=== PATIENT | female | born 1955 | race Caucasian/White ===

== ENCOUNTER 2017-05-20 08:00 | Outpatient (CLI) | payer MEDICARE ==
[2017-05-20 19:15] LABS: BASOPHILS # (AUTO) 0.1 10^3/uL (0.0-0.1); BASOPHILS % (AUTO) 0.6 %; EOSINOPHILS # (AUTO) 0.2 10^3/uL (0.0-0.7); EOSINOPHILS % (AUTO) 1.4 %; HCT - HEMATOCRIT 40.5 % (37.0-47.0); HGB - HEMOGLOBIN 13.3 g/dL (12.0-16.0); MEAN CORPUSCULAR HEMOGLOBIN 30.6 pg (27.0-31.0); MEAN CORPUSCULAR HGB CONC 32.8 g/dL (32.0-36.0); MEAN CORPUSCULAR VOLUME 93.2 fL (81.0-99.0); MEAN PLATELET VOLUME 10.3 fL (7.9-10.8); MONOCYTES # (AUTO) 0.7 10^3/uL (0.0-1.0); MONOCYTES % (AUTO) 6.3 %; NEUTROPHILS # (AUTO) 7.6 10^3/uL (1.5-6.6); NEUTROPHILS % (AUTO) 65.7 %; NUCLEATED RED BLOOD CELLS AUTO 0.1 /100WBC; RED BLOOD COUNT 4.35 10^6/uL (4.20-5.40); RED CELL DISTRIBUTION WIDTH 14.4 % (12.0-15.0); UNCORRECTED WHITE BLOOD COUNT 11.6 x10^3/uL; WHITE BLOOD COUNT 11.6 x10^3/uL (4.8-10.8)
== END 2017-05-20 08:01 | disposition home or self-care (01) ==
LOC: LAB.N 08:00
PROVIDERS: ATTEND Physician Assistant
DX: G57.00 Lesion of sciatic nerve, unspecified lower limb (principal); I10 Essential (primary) hypertension
CPT/HCPCS: 36415; 80053; 80061; 84443; 85025

== ENCOUNTER 2017-05-26 08:52 | Outpatient (CLI) | payer MEDICARE ==
[2017-05-26 13:21] LABS: ALBUMIN/GLOBULIN RATIO 1.4 (1.0-2.2); BILIRUBIN,TOTAL 0.5 mg/dL (0.2-1.0); BUN - BLOOD UREA NITROGEN 14 mg/dL (6-20); CALCIUM 9.8 mg/dL (8.5-10.3); CARBON DIOXIDE - CO2 26 mmol/L (21-32); CHLORIDE 105 mmol/L (101-111); CHOL/HDL RATIO 2.6 (<4.4); CHOLESTEROL 184 mg/dL; CREATININE 0.7 mg/dL (0.4-1.0); GFR - MDRD 85 (>89); GLUCOSE 99 mg/dL (70-100); HDL CHOLESTEROL 72 mg/dL; LDL/HDL RATIO 0.8 (<4.4); POTASSIUM 3.8 mmol/L (3.5-5.0); SODIUM 140 mmol/L (135-145); TOTAL PROTEIN 7.6 g/dL (6.7-8.2); TRIGLYCERIDES 258 mg/dL; VLDL CHOLESTEROL 52 mg/dL
== END 2017-05-26 08:53 | disposition home or self-care (01) ==
LOC: LAB.N 08:52
PROVIDERS: ATTEND Nurse Practitioner Gerontology
DX: G57.00 Lesion of sciatic nerve, unspecified lower limb (principal); I10 Essential (primary) hypertension
CPT/HCPCS: 80053; 80061; 84443

== ENCOUNTER 2018-05-18 10:26 | Outpatient (CLI) | payer MEDICARE ==
[2018-05-18 12:27] LABS: BASOPHILS # (AUTO) 0.1 10^3/uL (0.0-0.1); BASOPHILS % (AUTO) 0.7 %; EOSINOPHILS % (AUTO) 0.4 %; HGB - HEMOGLOBIN 15.6 g/dL (12.0-16.0); LYMPHOCYTES # (AUTO) 1.7 10^3/uL (1.5-3.5); LYMPHOCYTES % (AUTO) 16.6 %; MEAN CORPUSCULAR HEMOGLOBIN 34.4 pg (27.0-31.0); MEAN CORPUSCULAR HGB CONC 34.9 g/dL (32.0-36.0); MEAN CORPUSCULAR VOLUME 98.7 fL (81.0-99.0); MEAN PLATELET VOLUME 10.3 fL (7.9-10.8); MONOCYTES # (AUTO) 0.7 10^3/uL (0.0-1.0); MONOCYTES % (AUTO) 6.7 %; NEUTROPHILS # (AUTO) 7.7 10^3/uL (1.5-6.6); NEUTROPHILS % (AUTO) 75.6 %; PLT - PLATELET COUNT 234 10^3/uL (130-450); RED BLOOD COUNT 4.54 10^6/uL (4.20-5.40); RED CELL DISTRIBUTION WIDTH 13.6 % (12.0-15.0); WHITE BLOOD COUNT 10.2 x10^3/uL (4.8-10.8)
[2018-05-18 13:25] LABS: ALBUMIN 4.5 g/dL (3.2-5.5); ALBUMIN/GLOBULIN RATIO 1.4 (1.0-2.2); ALKALINE PHOSPHATASE 62 IU/L (42-121); ALT ALANINE AMINOTRANSFERASE 52 IU/L (10-60); AST ASPARTATE AMINOTRANSFERASE 85 IU/L (10-42); BILIRUBIN,TOTAL 1.1 mg/dL (0.2-1.0); BUN - BLOOD UREA NITROGEN 20 mg/dL (6-20); CALCIUM 9.8 mg/dL (8.5-10.3); CARBON DIOXIDE - CO2 25 mmol/L (21-32); CHLORIDE 98 mmol/L (101-111); CHOL/HDL RATIO 1.9 (<4.4); CHOLESTEROL 188 mg/dL; CREATININE 0.7 mg/dL (0.4-1.0); GFR - MDRD 85 (>89); GLUCOSE 93 mg/dL (70-100); HDL CHOLESTEROL 101 mg/dL; LDL CHOLESTEROL,CALCULATED 74 mg/dL; LDL/HDL RATIO 0.7 (<4.4); SODIUM 138 mmol/L (135-145); TOTAL PROTEIN 7.8 g/dL (6.7-8.2); VLDL CHOLESTEROL 13 mg/dL
== END 2018-05-18 10:27 | disposition home or self-care (01) ==
LOC: LAB.N 10:26
PROVIDERS: ATTEND Nurse Practitioner Gerontology
DX: E78.1 Pure hyperglyceridemia (principal); N18.2 Chronic kidney disease, stage 2 (mild); E66.9 Obesity, unspecified; F10.10 Alcohol abuse, uncomplicated; I12.9 Hypertensive chronic kidney disease with stage 1 through stage 4 chronic kidney disease, or unspecified chronic kidney disease
CPT/HCPCS: 36415; 80053; 80061; 83721; 85025

== ENCOUNTER 2018-07-25 16:09 | Outpatient (CLI) | payer MEDICARE | END 2018-07-25 16:10 | disposition critical access hospital (66) | LOC: EMS 16:09 | PROVIDERS: ATTEND Surgery | DX: R53.1 Weakness (principal); M25.561 Pain in right knee; R35.0 Frequency of micturition; Z91.81 History of falling | CPT/HCPCS: A0425; A0427 ==

== ENCOUNTER 2018-07-25 16:37 | Inpatient (IN) | payer MEDICARE, MEDICAID ==
[2018-07-25] MEDS ORDERED: SODIUM CHLORIDE 0.9% 1,000 ML IV ONE ×2 (16:53→17:40)
--- NOTE | 2018-07-25 16:56 | ED Physician Documentation ---
History of Present Illness - Stated complaint Stated Complaint: GLF - Chief complaint Chief Complaint: General - History obtained from History obtained from: Patient, EMS - History of Present Illness Timing: Other (This is a 63-year-old woman with history of peripheral neuropathy, she is not sure why, she is not diabetic. He gives her chronic mobility issues but over the last few days has been basically bedbound after a fall where she hit her right knee because she is generally weak. Paramedics were summoned by her family, she was found to be hypoglycemic at 50 and given oral glucose and also orthostatic with significant blood pressure drops on standing. She says that she has been incontinent of urine and feces over the last few days and has "stolen" her son's diapers, he has spina bifida.) Review of Systems Ten Systems: 10 systems reviewed and negative Constitutional: reports: Fatigue. 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, Hysterectomy - Present Medications Home Medications: Ambulatory Orders Medication Instructions Recorded Confirmed Amlodipine Besylate 5 mg PO DAILY 07/25/18 07/25/18 Gabapentin 300 mg PO DAILY PM 07/25/18 07/25/18 Lisinopril 20 mg PO DAILY 07/25/18 07/25/18 Pravastatin [Pravachol] 40 mg PO DAILY 07/25/18 07/25/18 - Allergies Allergies/Adverse Reactions: Allergies Allergy/AdvReac Type Severity Reaction Status Date / Time No Known Drug Allergies Allergy Verified 07/25/18 16:43 - Social History Does the pt smoke?: No Smoking Status: Former smoker Does the pt drink ETOH?: Yes Does the pt have substance abuse?: No - Family History Family history: reports: Non contributory - Immunizations Immunizations are current?: Yes PD ED PE NORMAL - Vitals Vital signs reviewed: Yes - General General: Alert and oriented X 3, Other (Somewhat unkempt woman who appears stated age and is in no distress) - HEENT HEENT: PERRL, EOMI - Neck Neck: Supple, no meningeal sign, No bony TTP - Cardiac Cardiac: RRR, No murmur - Respiratory Respiratory: No respiratory distress, Clear bilaterally - Abdomen Abdomen: Normal bowel sounds, Soft, Non tender - Back Back: No CVA TTP, No spinal TTP - Derm Derm: Normal color, Warm and dry - Extremities Extremities: Other (There is a large bruise over the anteromedial right knee but without overt tenderness or limited range of motion) - Neuro Neuro: Alert and oriented X 3, Normal speech, Other (She is at least a 1 person assist to even sit up in bed.) Eye Opening: Spontaneous Motor: Obeys Commands Verbal: Oriented GCS Score: 15 Results - Vitals Vitals: Vital Signs - 24 hr 07/25/18 16:37 Temperature 36.5 C Heart Rate 95 Respiratory 16 Rate Blood Pressure 96/71 O2 Saturation 99 Oxygen O2 Source Room air - EKG (time done) 1642 Rate: Rate (enter#) (90) Rhythm: NSR [place]: LAD Intervals: Normal NH QRS: Normal Ischemia: Non specific changes Compare to prior EKG: Old EKG unavailable Computer interpretation: Agree with computer - Labs Labs: Laboratory Tests 07/25/18 07/25/18 07/25/18 17:05 17:05 17:05 WBC 9.9 RBC 3.98 L Hgb 13.3 Hct 39.6 MCV 99.5 H MCH 33.4 H MCHC 33.5 RDW 15.0 Plt Count 196 MPV 8.8 Neut # (Auto) 7.6 H Lymph # (Auto) 1.4 L Clare # (Auto) 0.8 Eos # (Auto) 0.0 Baso # (Auto) 0.1 Absolute Nucleated RBC 0.01 Nucleated RBC % 0.1 Sodium 139 Potassium 4.5 Chloride 100 L Carbon Dioxide 15 L Anion Gap 24.0 H BUN 36 H Creatinine 1.0 Estimated GFR (MDRD) 56 L Glucose 69 L Calcium 9.0 Phosphorus 3.1 Magnesium 1.9 Total Bilirubin 1.7 H AST 171 H ALT 106 H Alkaline Phosphatase 63 Total Creatine Kinase 2692 H* CK-MB (CK-2) 69.2 H Troponin I < 0.04 Total Protein 7.3 Albumin 3.9 Globulin 3.4 Albumin/Globulin Ratio 1.1 Lipase 62 H Urine Color Urine Clarity Urine pH Ur Specific [place] Urine Protein Urine Glucose (UA) Urine Ketones Urine Occult Blood Urine Nitrite Urine Bilirubin Urine Urobilinogen Ur Leukocyte Esterase Urine RBC Urine WBC Ur Squamous Epith Cells Urine Bacteria Ur Microscopic Review Urine Culture Comments Ethyl Alcohol 157.4 07/25/18 17:15 WBC RBC Hgb Hct MCV MCH MCHC RDW Plt Count MPV Neut # (Auto) Lymph # (Auto) Clare # (Auto) Eos # (Auto) Baso # (Auto) Absolute Nucleated RBC Nucleated RBC % Sodium Potassium Chloride Carbon Dioxide Anion Gap BUN Creatinine Estimated GFR (MDRD) Glucose Calcium Phosphorus Magnesium Total Bilirubin AST ALT Alkaline Phosphatase Total Creatine Kinase CK-MB (CK-2) Troponin I Total Protein Albumin Globulin Albumin/Globulin Ratio Lipase Urine Color YELLOW Urine Clarity CLEAR Urine pH 6.0 Ur Specific [place] >=1.030 H Urine Protein TRACE Urine Glucose (UA) NEGATIVE Urine Ketones >=80 H Urine Occult Blood LARGE H Urine Nitrite NEGATIVE Urine Bilirubin NEGATIVE Urine Urobilinogen 0.2 (NORMAL) Ur Leukocyte Esterase NEGATIVE Urine RBC 0-5 Urine WBC 0-3 Ur Squamous Epith Cells MOD Squamous H Urine Bacteria None Seen Ur Microscopic Review INDICATED Urine Culture Comments NOT INDICATED Ethyl Alcohol PD MEDICAL DECISION MAKING - ED course ED course: 63-year-old woman presents by ambulance because she has been bedbound after a fall 3 days ago. She is very weak and has evidence of dehydration marked by prehospital orthostatic hypotension and also prehospital hypoglycemia. She is found to be intoxicated with a blood alcohol of 157 with modest alcoholic hepatitis, dehydration with a high BUN and rhabdomyolysis. She was given a liter of IV fluids and then placed on twice maintenance. She will be placed in the hospital and I spoke with Dr. Connors for admission at 5:43 PM. Departure - Departure Disposition: 66 [facility] DC/Xfer Clinical Impression: Dehydration Rhabdomyolysis Qualifiers: Rhabdomyolysis type: non-traumatic Qualified Code(s): M62.82 - Rhabdomyolysis Alcohol intoxication Qualifiers: Complication of substance-induced condition: uncomplicated Qualified Code(s): F10.920 - Alcohol use, unspecified with intoxication, uncomplicated Alcoholic hepatitis Qualifiers: Ascites presence: without ascites Qualified Code(s): K70.10 - Alcoholic hepatitis without ascites Condition: Serious
[2018-07-25 17:10] LABS: BASOPHILS # (AUTO) 0.1 10^3/uL (0.0-0.1); BASOPHILS % (AUTO) 1.3 %; HGB - HEMOGLOBIN 13.3 g/dL (12.0-16.0); LYMPHOCYTES # (AUTO) 1.4 10^3/uL (1.5-3.5); LYMPHOCYTES % (AUTO) 13.8 %; MEAN CORPUSCULAR HEMOGLOBIN 33.4 pg (27.0-31.0); MEAN CORPUSCULAR HGB CONC 33.5 g/dL (32.0-36.0); MEAN CORPUSCULAR VOLUME 99.5 fL (81.0-99.0); MEAN PLATELET VOLUME 8.8 fL (7.9-10.8); MONOCYTES # (AUTO) 0.8 10^3/uL (0.0-1.0); NEUTROPHILS # (AUTO) 7.6 10^3/uL (1.5-6.6); NEUTROPHILS % (AUTO) 76.9 %; PLT - PLATELET COUNT 196 10^3/uL (130-450); RED BLOOD COUNT 3.98 10^6/uL (4.20-5.40); WHITE BLOOD COUNT 9.9 x10^3/uL (4.8-10.8)
[2018-07-25 17:22] LABS: BILIRUBIN,URINE NEGATIVE (NEGATIVE); GLUCOSE, URINE (UA) NEGATIVE (NEGATIVE); KETONES,URINE (UA) >=80 mg/dL (NEGATIVE); LEUKOCYTE ESTERASE, URINE NEGATIVE (NEGATIVE); NITRITE,URINE NEGATIVE (NEGATIVE); OCCULT BLOOD,URINE LARGE (NEGATIVE); PROTEIN,URINE TRACE mg/dL (NEGATIVE); UROBILINOGEN,URINE 0.2 (NORMAL) E.U./dL (NORMAL)
[2018-07-25 17:28] LABS: TROPONIN I < 0.04 ng/mL (<0.49)
[2018-07-25 17:30] LABS: CLARITY,URINE CLEAR (CLEAR)
[2018-07-25 17:30] LABS: CREATINE KINASE MB 69.2 ng/mL (0.6-6.3)
[2018-07-25 17:31] LABS: BACTERIA,URINE None Seen /HPF (None Seen); RBC,URINE 0-5 /HPF (0-5); SQUAMOUS EPITHELIAL CELL,UR MOD Squamous (<= Few)
[2018-07-25 17:32] LABS: ALBUMIN 3.9 g/dL (3.2-5.5); ALBUMIN/GLOBULIN RATIO 1.1 (1.0-2.2); BILIRUBIN,TOTAL 1.7 mg/dL (0.2-1.0); MAGNESIUM 1.9 mg/dL (1.7-2.8); PHOSPHORUS 3.1 mg/dL (2.5-4.6); TOTAL PROTEIN 7.3 g/dL (6.7-8.2)
[2018-07-25] MEDS ORDERED: LORazepam 2 MG/ML VIAL IVP STA (17:47)
[2018-07-25] MEDS ORDERED: THIAMINE INJ 100 MG in SODIUM CHLORIDE 0.9% 50 ML IV STA (17:47)
--- NOTE | 2018-07-25 18:02 | XRAY Report ---
Reason: knee inj Procedure Date: 07/25/2018 Accession Number: [id number] / [id number] Procedure: XR - Knee 4 View RT CPT Code: FULL RESULT: EXAM: RIGHT KNEE RADIOGRAPHY EXAM DATE: 07/25/2018 05:43 PM. CLINICAL HISTORY: Pain. COMPARISON: None. TECHNIQUE: 4 views. FINDINGS: Bones: Normal. No fractures or bone lesions. Joints: Normal. No effusion. No subluxations. Soft Tissues: Normal. No soft tissue swelling. IMPRESSION: Normal knee radiography. RADIA
--- NOTE | 2018-07-25 18:05 | XRAY Report ---
Reason: failure to thrive Procedure Date: 07/25/2018 Accession Number: [id number] / [id number] Procedure: XR - Chest 2 View X-Ray CPT Code: 48424 FULL RESULT: EXAM: CHEST RADIOGRAPHY EXAM DATE: 07/25/2018 05:43 PM. CLINICAL HISTORY: Failure to thrive. COMPARISON: 06/07/2012 12:45 PM. TECHNIQUE: 2 views. FINDINGS: Lungs/Pleura: No focal opacities evident. No pleural effusion. No pneumothorax. Normal volumes. Mediastinum: Stable cardiomediastinal silhouette. Ectatic thoracic aorta. Other: None. IMPRESSION: 1. No acute pulmonary process. RADIA
[2018-07-25] MEDS ORDERED: ONDANSETRON 4 MG/2 ML VIAL IVP PRN (18:31)
--- NOTE | 2018-07-25 18:45 | HISTORY & PHYSICAL EXAMINATION ---
Chief Complaint - Chief Complaint Chief Complaint: confused, and alcohol abuse History of Present Illness - History of Present Illness HPI Comment/Other: Ms. Hernandez is a 63-year-old woman with history of peripheral neuropathy, HTN, HLD, chronic back pain, and alcohol abuse, who present ER for confusion, weakness. She was found to have alcohol level 157 in ER. Pt could not provide information because of her confusion. Her daughter report since she had a previous fall, she had chronic mobility issues and has been basically bed. When Paramedics reached to her, her blood glucose was at 50. She was given oral glucose, then her glucose level went to up 89. She was reported that she has been incontinent of urine and feces over the last few days and has "stolen" her son's diapers. Her son had spina bifida, and lived with her. Her liver enzyme wa s elevated and she had elevated CK at 2700. She had anion gap at 24, BUN 36, creatinine 1.0. 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 denies: Fever, Chills, Diaphoresis - Eyes Eyes: denies: Pain, Irritation, Amaurosis, Spots in vision, Field loss, Vision loss, Dipolpia - Ears, Nose & Throat Ears, Nose & Throat: denies: Ear pain, Hearing loss, Hearing aids, Tinnitus, Vertigo, Nasal pain, Nasal discharge, Nosebleeds, Nasal obstruction, Nasal congestion, Postnasal drainage, Dentures, Sore throat, Mouth lesions - Cardiovascular Cariovascular: denies: Irregular heart rate, Palpitations, Chest pain, Edema, Lightheadedness, Syncope, Exertional dyspnea, Decr. exercise tolerance - Respiratory Respiratory: denies: Cough, Sputum production, Wheezing, Snoring, Hemoptysis, SOB at rest, SOB with exertion - Gastrointestinal Gastrointestinal: denies: Abdominal pain, Abdominal distention, Constipation, Diarrhea, Change in bowel habits, Rectal bleeding, Black stools, Bloody stools, Nausea, Vomiting, Bile emesis, Jose Eduardo blood emesis, Coffee grounds emesis, Reflux/heartburn - Genitourinary Genitourinary: denies: Dysuria, Frequency, Urgency, Hematuria, Incontinence, Flank pain, Nocturia, Urethral discharge - Musculoskeletal Musculoskeletal: denies: Muscle pain, Back pain, Muscle aches, Stiffness, Limited range of motion, Muscle weakness, Gout, Joint pain - Integumentary Integumentary: denies: Rash, Pruritis, Lesions, Dryness, Lumps, Acne, Pigment changes, Nail changes - Neurological Neurological: reports: General weakness. denies: Focal weakness, Headache, Dizziness, Numbness, Memory problems, Pre-existing deficit, Abnormal gait, Seizures, Incoordination - Psychiatric Psychiatric: denies: Depression, Anxiety, Suicidal, Delusions, Hallucinations, Homicidal - Endocrine Endocrine: denies: Polyuria, Polydypsia, Polyphagia, Intolerance to cold - Hematologic/Lymphatic Hematologic/Lymphatic: denies: Anemia, Bruising, Petechiae, Blood clots, Lymphadenopathy, Bleeding tendencies Prior Level of Functionality: bed-bound, is living with her son Exam - Vital Signs Reviewed Vital Signs: Yes Vital Signs: Vital Signs x48h Temp Pulse Resp BP Pulse Ox 07/25/18 16:37 36.5 C 95 16 96/71 99 - Physical Exam General Appearance: positive: No acute distress, Alert. negative: Lethargic Eyes Bilateral: positive: Normal inspection, PERRL, No lid inflammation, Conjunctivae nml ENT: positive: ENT inspection nml, Pharynx nml, No signs of dehydration. negative: Purulent nasal drainage, Pharyngeal erythema, Oral lesions Neck: positive: Nml inspection, Thyroid nml, No JVD, Trachea midline. negative: Thyromegaly, Lymphadenopathy (R), Lymphadenopathy (L), Stiff neck, Sw elling/bruising, Tracheal deviation Respiratory: positive: Chest non-tender, No respiratory distress, Breath sounds nml. negative: Wheezes, Rales, Rhonchi Cardiovascular: positive: Regular rate & rhythm, No murmur, No gallop. negative: Irregularly irregular, Extrasystoles, Tachycardia, Bradycardia, JVD present, Systolic murmur, Diastolic murmur Peripheral Pulses: positive: 2+ Abdomen: positive: Non-tender, No organomegaly, Nml bowel sounds. negative: No distention, Tenderness, Guarding, Rebound Back: positive: Nml inspection. negative: CVA tenderness (R), CVA tenderness (L) Skin: positive: Color nml, No rash, Warm, Dry. negative: Cyanosis, Diaphoresis, Pallor Extremities: positive: Non-tender, Full ROM, Nml appearance. negative: Calf tenderness, Joint swelling, Miguel's sign/cords Neurologic/Psychiatric: positive: Sensation nml, Mood/affect nml, Disoriented to place, Disoriented to time. negative: Weakness, Sensory loss, Facial droop, Slurred/abnml speech, Depressed mood/affect Conclusion/Plan - Problem List (1) Rhabdomyolysis Conclusion/Plan: elevated CK to 2700 IVF 150 NS check CK daily Monitor renal function. Qualifiers: Rhabdomyolysis type: non-traumatic Qualified Code(s): M62.82 - Rhabdomyolysis (2) Alcohol intoxication Conclusion/Plan: ETOH level 157, hx of alcoholic abuse CAWA protocol neuro check lab and vital monitor Qualifiers: Complication of substance-induced condition: uncomplicated Qualified Code(s): F10.920 - Alcohol use, unspecified with intoxication, uncomplicated (3) Alcoholic hepatitis Conclusion/Plan: elevated liver enzyme, alcoholic hepatitis advise pt quit alcohol daily lab monitor hold hepatic toxical agents Qualifiers: Ascites presence: without ascites Qualified Code(s): K70.10 - Alcoholic hepatitis without ascites (4) Dehydration Conclusion/Plan: IVF of NS daily lab monitor (5) Hypoglycemia Conclusion/Plan: hypoglycemia, caused by alcohol abuse and reduced oral glucose intake ACHS, closely monitor regular diet - Lab Results Fish Bones: 07/26/18 06:23 07/26/18 06:23 Core Measures - Anticipated LOS I expect patient to be DC'd or transferred within 96 hours.: Yes - DVT/VTE - Prophylaxis VTE/DVT Device ordered at admit?: Yes VTE/DVT Prophylaxis med ordered at admit?: Yes
[2018-07-25 19:14] LABS: MUDS CUTOFF CONCENTRATIONS CUTOFF CONC BELOW:
[2018-07-25 19:27] LABS: AMPHETAMINE SCREEN,URINE NEGATIVE (NEGATIVE); BENZODIAZEPINES SCREEN, URINE NEGATIVE (NEGATIVE); COCAINE SCREEN URINE NEGATIVE (NEGATIVE); METHADONE SCREEN, URINE NEGATIVE (NEGATIVE); METHAMPHETAMINES SCREEN, URINE NEGATIVE (NEGATIVE); OPIATE SCREEN, URINE NEGATIVE (NEGATIVE); OXYCODONE SCREEN, URINE NEGATIVE (NEGATIVE); PROPOXYPHENE SCREEN, URINE NEGATIVE (NEGATIVE); TRICYCLIC ANTIDEPRESSANT,URINE NEGATIVE (NEGATIVE)
[2018-07-25] MEDS ORDERED: A & D OINTMENT 5 GM PACKET TOP PRN (20:21)
[2018-07-25] MEDS ORDERED: ZINC OXIDE 20% OINT 28.35 GM TUBE TOP PRN (20:21)
[2018-07-25] MEDS: FAMOTIDINE 20 MG TABLET PO SCH (20:40)
[2018-07-25] MEDS: SODIUM CHLORIDE 0.9% 1,000 ML IV SCH (20:41)
[2018-07-26] MEDS: SODIUM CHLORIDE 0.9% 1,000 ML IV SCH ×4 (00:06→16:45)
[2018-07-26] MEDS: HYDROCORTISONE 1% CREAM 28 GM TUBE TOP SCH ×3 (01:50→20:31)
[2018-07-26] MEDS: SODIUM CHLORIDE FLUSH 0.9% 10 ML SYRINGE IVP SCH ×3 (05:01→15:40)
[2018-07-26 07:01] LABS: BASOPHILS # (AUTO) 0.1 10^3/uL (0.0-0.1); BASOPHILS % (AUTO) 0.6 %; EOSINOPHILS % (AUTO) 0.2 %; HGB - HEMOGLOBIN 11.1 g/dL (12.0-16.0); LYMPHOCYTES # (AUTO) 1.9 10^3/uL (1.5-3.5); LYMPHOCYTES % (AUTO) 19.7 %; MEAN CORPUSCULAR HEMOGLOBIN 33.7 pg (27.0-31.0); MEAN CORPUSCULAR HGB CONC 34.1 g/dL (32.0-36.0); MEAN PLATELET VOLUME 9.1 fL (7.9-10.8); MONOCYTES # (AUTO) 0.8 10^3/uL (0.0-1.0); MONOCYTES % (AUTO) 8.7 %; NEUTROPHILS # (AUTO) 6.8 10^3/uL (1.5-6.6); NEUTROPHILS % (AUTO) 70.8 %; PLT - PLATELET COUNT 157 10^3/uL (130-450); RED CELL DISTRIBUTION WIDTH 14.8 % (12.0-15.0); WHITE BLOOD COUNT 9.6 x10^3/uL (4.8-10.8)
[2018-07-26 07:18] LABS: ALBUMIN 3.1 g/dL (3.2-5.5); ALBUMIN/GLOBULIN RATIO 1.2 (1.0-2.2); BILIRUBIN,TOTAL 2.1 mg/dL (0.2-1.0); CALCIUM 8.5 mg/dL (8.5-10.3); CREATININE 0.7 mg/dL (0.4-1.0); MAGNESIUM 1.7 mg/dL (1.7-2.8); PHOSPHORUS 1.8 mg/dL (2.5-4.6); TOTAL PROTEIN 5.7 g/dL (6.7-8.2)
[2018-07-26 07:23] LABS: PT - PROTHROMBIN TIME 11.3 secs (9.9-12.6)
[2018-07-26] MEDS ORDERED: MULTIVITAMIN 10 ML, THIAMINE INJ 100 MG, FOLIC ACID INJ 1 MG in SODIUM CHLORIDE 0.9% 1,... IV SCH (09:00)
[2018-07-26] MEDS: FAMOTIDINE 20 MG TABLET PO SCH ×2 (09:30→20:31)
[2018-07-26] MEDS: ACETAMINOPHEN 325 MG TABLET PO PRN ×2 (09:30→16:44)
[2018-07-26] MEDS: ENOXAPARIN 40 MG/0.4 ML SYRINGE SUBQ SCH (09:31)
[2018-07-26] MEDS: DOCUSATE SODIUM 250 MG CAPSULE PO SCH (09:31)
[2018-07-26] MEDS: SENNA 8.6 MG TABLET PO SCH (09:31)
[2018-07-26] MEDS: POLYETHYLENE GLYCOL 3350 17 GM PACKET PO SCH (09:33)
[2018-07-26] MEDS: LORazepam 2 MG/ML VIAL IVP PRN ×3 (10:33→22:52)
--- NOTE | 2018-07-26 16:32 | PROVIDER PROGRESS NOTE ---
Subjective - Prog Note Date Prog Note Date: 07/26/18 - Subjective Pt reports feeling: Improved Subjective: pt report she feel some better today. She report she usually drunk 750ml alcohol daily. she denies CP, fever, chill, SOB Current Medications - Current Medications Current Medications: Active Medications Acetaminophen (Tylenol) 650 mg PO Q4HR PRN PRN Reason: Pain 1 to 4 Last Admin: 07/26/18 09:30 Dose: 650 mg Docusate Sodium (Colace 250mg Capsule) 250 - 500 mg PO DAILY [facility] Last Admin: 07/26/18 09:31 Dose: 500 mg Enoxaparin Sodium (Lovenox) 40 mg SUBQ DAILY [facility] Last Admin: 07/26/18 09:31 Dose: 40 mg Famotidine (Pepcid) 20 mg PO BID [facility] Last Admin: 07/26/18 09:30 Dose: 20 mg Hydrocortisone (Hydrocortisone) 1 applic TOP BID [facility] Last Admin: 07/26/18 09:34 Dose: 1 applic Multivitamins 10 ml/ Thiamine HCl 100 mg/ Folic Acid 1 mg/Sodium Chloride 1,011.2 mls @ 100 mls/hr IV DAILY [facility] Last Admin: 07/26/18 09:39 Dose: 100 mls/hr Sodium Chloride (Normal Saline 0.9%) 1,000 mls @ 125 mls/hr IV .Q8H [facility] Lorazepam (Ativan Inj (Vial)) 1 mg IVP Q30M PRN; Protocol PRN Reason: CIWA >8 Last Admin: 07/26/18 10:33 Dose: 1 mg Multi-Ingredient Ointment (Zinc Oxide) 1 applic TOP PRN PRN PRN Reason: Skin Care Last Admin: 07/25/18 20:40 Dose: 1 applic Ondansetron HCl (Zofran Inj) 4 mg IVP Q6HR PRN PRN Reason: Nausea / Vomiting Polyethylene Glycol (Miralax) 17 gm PO DAILY [facility] Last Admin: 07/26/18 09:33 Dose: 17 gm Senna (Senokot) 8.6 - 17.2 mg PO DAILY [facility] Last Admin: 07/26/18 09:31 Dose: Not Given Sodium Chloride (Normal Saline Flush 0.9%) 10 ml IVP PRN PRN PRN Reason: NEEDED PER PROVIDER ORDERS Sodium Chloride (Normal Saline Flush 0.9%) 10 ml IVP 0100,0900,1700 [facility] Last Admin: 07/26/18 15:40 Dose: Not Given Vitamin A/Vitamin D (Vitamin A & D Ointment) 1 applic TOP PRN PRN PRN Reason: Skin Care Last Admin: 07/25/18 20:40 Dose: 1 applic Amlodipine Besylate 5 mg PO DAILY 07/25/18 Lisinopril 20 mg PO DAILY 07/25/18 Pravastatin [Pravachol] 40 mg PO DAILY 07/25/18 Objective - Vital Signs/Intake & Output Reviewed Vital Signs: Yes Vital Signs: Vital Signs x48h Temp Pulse Pulse Resp BP Pulse Ox 07/26/18 15:39 37.1 C 103 H 18 121/82 H 96 07/26/18 12:36 36.9 C 90 16 121/80 94 07/26/18 11:23 36.8 C 90 14 96 07/26/18 10:00 36.8 C 86 16 115/73 95 07/26/18 08:37 36.8 C 94 14 130/80 96 Intake & Output: Intake & Output 07/23/18 07/24/18 07/25/18 07/26/18 23:59 23:59 23:59 23:59 Intake Total 1605 2555.0 Output Total 200 251 Balance 1405 2304.0 - Objective General Appearance: positive: No acute distress, Alert. negative: Lethargic Eyes Bilateral: positive: Normal inspection, PERRL, No lid inflammation, Conjunctivae nml ENT: positive: ENT inspection nml, Pharynx nml, No signs of dehydration. negative: Purulent nasal drainage, Pharyngeal erythema, Oral lesions Neck: positive: Nml inspection, Thyroid nml, No JVD, Trachea midline. negative: Thyromegaly, Lymphadenopathy (R), Lymphadenopathy (L), Stiff neck, Swelling/bruising, Tracheal deviation Respiratory: positive: Chest non-tender, No respiratory distress, Breath sounds nml. negative: Wheezes, Rales, Rhonchi Cardiovascular: positive: Regular rate & rhythm, No murmur, No gallop. negative: Irregularly irregular, Extrasystoles, Tachycardia, Bradycardia, JVD present, Systolic murmur, Diastolic murmur Peripheral Pulses: 2+ Radial (R), 2+ Radial (L), 2+ Dorsalis pedis (R), 2+ Dorsalis pedis (L) Abdomen: positive: Non-tender, No organomegaly, Nml bowel sounds, No distention. negative: Tenderness, Guarding, Rebound Back: positive: Nml inspection. negative: CVA tenderness (R), CVA tenderness (L) Skin: positive: Color nml, No rash, Warm, Dry. negative: Cyanosis, Diaphoresis, Pallor Extremities: positive: Non-tender, Full ROM, Nml appearance. negative: Calf tenderness, Joint swelling, Miguel's sign/cords Neurologic/Psychiatric: positive: CN's nml (2-12), Motor nml, Sensation nml. negative: Mood/affect nml, Weakness, Sensory loss, Facial droop, Slurred/abnml speech, Depressed mood/affect - Lab Results Fish Bones: 07/26/18 06:23 07/26/18 06:23 Other Labs: Lab Results x24hrs 07/26/18 07/26/18 07/26/18 Range/Units 09:02 06:23 06:23 WBC (4.8-10.8) x10^3/uL RBC (4.20-5.40) 10^6/uL Hgb (12.0-16.0) g/dL Hct (37.0-47.0) % MCV (81.0-99.0) fL MCH (27.0-31.0) pg MCHC (32.0-36.0) g/dL RDW (12.0-15.0) % Plt Count (130-450) 10^3/uL MPV (7.9-10.8) fL Neut # (Auto) (1.5-6.6) 10^3/uL Lymph # (Auto) (1.5-3.5) 10^3/uL [place] # (Auto) (0.0-1.0) 10^3/uL Eos # (Auto) (0.0-0.7) 10^3/uL Baso # (Auto) (0.0-0.1) 10^3/uL Absolute Nucleated RBC x10^3/uL Nucleated RBC % /100WBC PT 11.3 (9.9-12.6) secs INR 1.0 (0.8-1.2) Sodium 135 (135-145) mmol/L Potassium 4.2 (3.5-5.0) mmol/L Chloride 104 (101-111) mmol/L Carbon Dioxide 19 L (21-32) mmol/L Anion Gap 12.0 (6-13) BUN 27 H (6-20) mg/dL Creatinine 0.7 (0.4-1.0) mg/dL Estimated GFR (MDRD) 85 L (>89) Glucose 82 (70-100) mg/dL Calcium 8.5 (8.5-10.3) mg/dL Phosphorus 1.8 L (2.5-4.6) mg/dL Magnesium 1.7 (1.7-2.8) mg/dL Total Bilirubin 2.1 H (0.2-1.0) mg/dL AST 124 H (10-42) IU/L ALT 78 H (10-60) IU/L Alkaline Phosphatase 49 (42-121) IU/L Total Creatine Kinase 1932 H* (22-269) IU/L CK-MB (CK-2) (0.6-6.3) ng/mL Troponin I (<0.49) ng/mL Total Protein 5.7 L (6.7-8.2) g/dL Albumin 3.1 L (3.2-5.5) g/dL Globulin 2.6 (2.1-4.2) g/dL Albumin/Globulin Ratio 1.2 (1.0-2.2) Lipase (22-51) U/L Urine Color Urine Clarity (CLEAR) Urine pH (5.0-7.5) PH Ur Specific [place] (1.002-1.030) Urine Protein (NEGATIVE) mg/dL Urine Glucose (UA) (NEGATIVE) mg/dL Urine Ketones (NEGATIVE) mg/dL Urine Occult Blood (NEGATIVE) Urine Nitrite (NEGATIVE) Urine Bilirubin (NEGATIVE) Urine Urobilinogen (NORMAL) E.U./dL Ur Leukocyte Esterase (NEGATIVE) Urine RBC (0-5) /HPF Urine WBC (0-5) /HPF Ur Squamous Epith Cells (<= Few) Urine Bacteria (None Seen) /HPF Ur Microscopic Review Urine Culture Comments Urine Opiates Screen (NEGATIVE) Ur Oxycodone Screen (NEGATIVE) Urine Methadone Screen (NEGATIVE) Ur Propoxyphene Screen (NEGATIVE) Ur Barbiturates Screen (NEGATIVE) Ur Tricyclics Screen (NEGATIVE) Ur Phencyclidine Scrn (NEGATIVE) Ur Amphetamine Screen (NEGATIVE) U Methamphetamines Scrn (NEGATIVE) U Benzodiazepines Scrn (NEGATIVE) Urine Cocaine Screen (NEGATIVE) U Cannabinoids Screen (NEGATIVE) Ethyl Alcohol mg/dL 07/26/18 07/25/18 07/25/18 Range/Units 06:23 18:16 17:15 WBC 9.6 (4.8-10.8) x10^3/uL RBC 3.30 L (4.20-5.40) 10^6/uL Hgb 11.1 L (12.0-16.0) g/dL Hct 32.7 L (37.0-47.0) % MCV 99.0 (81.0-99.0) fL MCH 33.7 H (27.0-31.0) pg MCHC 34.1 (32.0-36.0) g/dL RDW 14.8 (12.0-15.0) % Plt Count 157 (130-450) 10^3/uL MPV 9.1 (7.9-10.8) fL Neut # (Auto) 6.8 H (1.5-6.6) 10^3/uL Lymph # (Auto) 1.9 (1.5-3.5) 10^3/uL [place] # (Auto) 0.8 (0.0-1.0) 10^3/uL Eos # (Auto) 0.0 (0.0-0.7) 10^3/uL Baso # (Auto) 0.1 (0.0-0.1) 10^3/uL Absolute Nucleated RBC 0.01 x10^3/uL Nucleated RBC % 0.1 /100WBC PT (9.9-12.6) secs INR (0.8-1.2) Sodium (135-145) mmol/L Potassium (3.5-5.0) mmol/L Chloride (101-111) mmol/L Carbon Dioxide (21-32) mmol/L Anion Gap (6-13) BUN (6-20) mg/dL Creatinine (0.4-1.0) mg/dL Estimated GFR (MDRD) (>89) Glucose (70-100) mg/dL Calcium (8.5-10.3) mg/dL Phosphorus (2.5-4.6) mg/dL Magnesium (1.7-2.8) mg/dL Total Bilirubin (0.2-1.0) mg/dL AST (10-42) IU/L ALT (10-60) IU/L Alkaline Phosphatase (42-121) IU/L Total Creatine Kinase (22-269) IU/L CK-MB (CK-2) (0.6-6.3) ng/mL Troponin I (<0.49) ng/mL Total Protein (6.7-8.2) g/dL Albumin (3.2-5.5) g/dL Globulin (2.1-4.2) g/dL Albumin/Globulin Ratio (1.0-2.2) Lipase (22-51) U/L Urine Color YELLOW Urine Clarity CLEAR (CLEAR) Urine pH 6.0 (5.0-7.5) PH Ur Specific [place] >=1.030 H (1.002-1.030) Urine Protein TRACE (NEGATIVE) mg/dL Urine Glucose (UA) NEGATIVE (NEGATIVE) mg/dL Urine Ketones >=80 H (NEGATIVE) mg/dL Urine Occult Blood LARGE H (NEGATIVE) Urine Nitrite NEGATIVE (NEGATIVE) Urine Bilirubin NEGATIVE (NEGATIVE) Urine Urobilinogen 0.2 (NORMAL) (NORMAL) E.U./dL Ur Leukocyte Esterase NEGATIVE (NEGATIVE) Urine RBC 0-5 (0-5) /HPF Urine WBC 0-3 (0-5) /HPF Ur Squamous Epith Cells MOD Squamous H (<= Few) Urine Bacteria None Seen (None Seen) /HPF Ur Microscopic Review INDICATED Urine Culture Comments NOT INDICATED Urine Opiates Screen NEGATIVE (NEGATIVE) Ur Oxycodone Screen NEGATIVE (NEGATIVE) Urine Methadone Screen NEGATIVE (NEGATIVE) Ur Propoxyphene Screen NEGATIVE (NEGATIVE) Ur Barbiturates Screen NEGATIVE (NEGATIVE) Ur Tricyclics Screen NEGATIVE (NEGATIVE) Ur Phencyclidine Scrn NEGATIVE (NEGATIVE) Ur Amphetamine Screen NEGATIVE (NEGATIVE) U Methamphetamines Scrn NEGATIVE (NEGATIVE) U Benzodiazepines Scrn NEGATIVE (NEGATIVE) Urine Cocaine Screen NEGATIVE (NEGATIVE) U Cannabinoids Screen POSITIVE H (NEGATIVE) Ethyl Alcohol mg/dL 07/25/18 07/25/18 07/25/18 Range/Units 17:05 17:05 17:05 WBC 9.9 (4.8-10.8) x10^3/uL RBC 3.98 L (4.20-5.40) 10^6/uL Hgb 13.3 (12.0-16.0) g/dL Hct 39.6 (37.0-47.0) % MCV 99.5 H (81.0-99.0) fL MCH 33.4 H (27.0-31.0) pg MCHC 33.5 (32.0-36.0) g/dL RDW 15.0 (12.0-15.0) % Plt Count 196 (130-450) 10^3/uL MPV 8.8 (7.9-10.8) fL Neut # (Auto) 7.6 H (1.5-6.6) 10^3/uL Lymph # (Auto) 1.4 L (1.5-3.5) 10^3/uL [place] # (Auto) 0.8 (0.0-1.0) 10^3/uL Eos # (Auto) 0.0 (0.0-0.7) 10^3/uL Baso # (Auto) 0.1 (0.0-0.1) 10^3/uL Absolute Nucleated RBC 0.01 x10^3/uL Nucleated RBC % 0.1 /100WBC PT (9.9-12.6) secs INR (0.8-1.2) Sodium 139 (135-145) mmol/L Potassium 4.5 (3.5-5.0) mmol/L Chloride 100 L (101-111) mmol/L Carbon Dioxide 15 L (21-32) mmol/L Anion Gap 24.0 H (6-13) BUN 36 H (6-20) mg/dL Creatinine 1.0 (0.4-1.0) mg/dL Estimated GFR (MDRD) 56 L (>89) Glucose 69 L (70-100) mg/dL Calcium 9.0 (8.5-10.3) mg/dL Phosphorus 3.1 (2.5-4.6) mg/dL Magnesium 1.9 (1.7-2.8) mg/dL Total Bilirubin 1.7 H (0.2-1.0) mg/dL AST 171 H (10-42) IU/L ALT 106 H (10-60) IU/L Alkaline Phosphatase 63 (42-121) IU/L Total Creatine Kinase 2692 H* (22-269) IU/L CK-MB (CK-2) 69.2 H (0.6-6.3) ng/mL Troponin I < 0.04 (<0.49) ng/mL Total Protein 7.3 (6.7-8.2) g/dL Albumin 3.9 (3.2-5.5) g/dL Globulin 3.4 (2.1-4.2) g/dL Albumin/Globulin Ratio 1.1 (1.0-2.2) Lipase 62 H (22-51) U/L Urine Color Urine Clarity (CLEAR) Urine pH (5.0-7.5) PH Ur Specific [place] (1.002-1.030) Urine Protein (NEGATIVE) mg/dL Urine Glucose (UA) (NEGATIVE) mg/dL Urine Ketones (NEGATIVE) mg/dL Urine Occult Blood (NEGATIVE) Urine Nitrite (NEGATIVE) Urine Bilirubin (NEGATIVE) Urine Urobilinogen (NORMAL) E.U./dL Ur Leukocyte Esterase (NEGATIVE) Urine RBC (0-5) /HPF Urine WBC (0-5) /HPF Ur Squamous Epith Cells (<= Few) Urine Bacteria (None Seen) /HPF Ur Microscopic Review Urine Culture Comments Urine Opiates Screen (NEGATIVE) Ur Oxycodone Screen (NEGATIVE) Urine Methadone Screen (NEGATIVE) Ur Propoxyphene Screen (NEGATIVE) Ur Barbiturates Screen (NEGATIVE) Ur Tricyclics Screen (NEGATIVE) Ur Phencyclidine Scrn (NEGATIVE) Ur Amphetamine Screen (NEGATIVE) U Methamphetamines Scrn (NEGATIVE) U Benzodiazepines Scrn (NEGATIVE) Urine Cocaine Screen (NEGATIVE) U Cannabinoids Screen (NEGATIVE) Ethyl Alcohol 157.4 mg/dL ABX Reporting Has patient been on IV antibiotics over the past 48 hours?: No Assessment/Plan - Problem List (1) Rhabdomyolysis Impression: Conclusion/Plan: 07/26, CK is down to 1900, denies muscle cramping, normal urine continue IVF of NS daily lab monitor elevated CK to 2700 IVF 150 NS check CK daily Monitor renal function. Qualifiers: Rhabdomyolysis type: non-traumatic Qualified Code(s): M62.82 - Rhabdomyolysis (2) Alcohol intoxication Conclusion/Plan: 07/26, CAWA score 8 per nurse report, no seizure continue CAWA protocol continue banna bag ETOH level 157, hx of alcoholic abuse CAWA protocol neuro check lab and vital monitor (3) Alcoholic hepatitis Conclusion/Plan: improved elevated liver enzyme, alcoholic hepatitis advise pt quit alcohol daily lab monitor hold hepatic toxical agents (4) Dehydration Conclusion/Plan: improved continue iVF of ns IVF of NS daily lab monitor (5) Hypoglycemia Conclusion/Plan: 07/26 continue ACHS hypoglycemia, caused by alcohol abuse and reduced oral glucose intake ACHS, closely monitor regular diet Qualifiers: Rhabdomyolysis type: non-traumatic Qualified Code(s): M62.82 - Rhabdomyolysis (2) Alcohol intoxication Qualifiers: Complication of substance-induced condition: uncomplicated Qualified Code(s): F10.920 - Alcohol use, unspecified with intoxication, uncomplicated (3) Alcoholic hepatitis Qualifiers: Ascites presence: without ascites Qualified Code(s): K70.10 - Alcoholic hepatitis without ascites
[2018-07-26] MEDS: SODIUM CHLORIDE FLUSH 0.9% 10 ML SYRINGE IVP PRN (16:45)
[2018-07-27] MEDS: SODIUM CHLORIDE 0.9% 1,000 ML IV SCH ×2 (01:00→16:05)
[2018-07-27] MEDS: SODIUM CHLORIDE FLUSH 0.9% 10 ML SYRINGE IVP SCH ×4 (04:40→23:21)
[2018-07-27] MEDS: SODIUM CHLORIDE FLUSH 0.9% 10 ML SYRINGE IVP PRN (05:21)
[2018-07-27 06:06] LABS: BASOPHILS # (AUTO) 0.1 10^3/uL (0.0-0.1); BASOPHILS % (AUTO) 0.9 %; EOSINOPHILS # (AUTO) 0.1 10^3/uL (0.0-0.7); EOSINOPHILS % (AUTO) 1.5 %; HGB - HEMOGLOBIN 10.8 g/dL (12.0-16.0); LYMPHOCYTES # (AUTO) 1.5 10^3/uL (1.5-3.5); LYMPHOCYTES % (AUTO) 24.7 %; MEAN CORPUSCULAR HEMOGLOBIN 33.9 pg (27.0-31.0); MEAN CORPUSCULAR HGB CONC 34.2 g/dL (32.0-36.0); MEAN CORPUSCULAR VOLUME 99.1 fL (81.0-99.0); MEAN PLATELET VOLUME 9.7 fL (7.9-10.8); MONOCYTES # (AUTO) 0.6 10^3/uL (0.0-1.0); MONOCYTES % (AUTO) 9.7 %; NEUTROPHILS # (AUTO) 3.8 10^3/uL (1.5-6.6); NEUTROPHILS % (AUTO) 63.2 %; PLT - PLATELET COUNT 134 10^3/uL (130-450); RED BLOOD COUNT 3.19 10^6/uL (4.20-5.40); RED CELL DISTRIBUTION WIDTH 14.6 % (12.0-15.0); WHITE BLOOD COUNT 6.1 x10^3/uL (4.8-10.8)
[2018-07-27 06:07] LABS: ALBUMIN/GLOBULIN RATIO 1.2 (1.0-2.2); BILIRUBIN,TOTAL 1.3 mg/dL (0.2-1.0); CALCIUM 8.8 mg/dL (8.5-10.3); CREATININE 0.5 mg/dL (0.4-1.0); TOTAL PROTEIN 5.5 g/dL (6.7-8.2)
[2018-07-27] MEDS: DOCUSATE SODIUM 250 MG CAPSULE PO SCH (09:20)
[2018-07-27] MEDS: ENOXAPARIN 40 MG/0.4 ML SYRINGE SUBQ SCH (09:20)
[2018-07-27] MEDS: SENNA 8.6 MG TABLET PO SCH (09:20)
[2018-07-27] MEDS: POLYETHYLENE GLYCOL 3350 17 GM PACKET PO SCH (09:20)
[2018-07-27] MEDS: FAMOTIDINE 20 MG TABLET PO SCH ×2 (09:20→21:47)
[2018-07-27] MEDS: HYDROCORTISONE 1% CREAM 28 GM TUBE TOP SCH ×2 (09:21→21:47)
[2018-07-27] MEDS: PRENATAL VITAMIN TABLET PO SCH (11:40)
[2018-07-27] MEDS: THIAMINE 100 MG TABLET PO SCH (13:47)
--- NOTE | 2018-07-27 15:32 | PROVIDER PROGRESS NOTE ---
Subjective - Prog Note Date Prog Note Date: 07/27/18 - Subjective Pt reports feeling: Improved Subjective: pt report she will feel better than yesterday, but still feel very weak, difficult to ambulate. Current Medications - Current Medications Current Medications: Active Medications Acetaminophen (Tylenol) 650 mg PO Q4HR PRN PRN Reason: Pain 1 to 4 Last Admin: 07/26/18 16:44 Dose: 650 mg Docusate Sodium (Colace 250mg Capsule) 250 - 500 mg PO DAILY [facility] Last Admin: 07/27/18 09:20 Dose: 250 mg Enoxaparin Sodium (Lovenox) 40 mg SUBQ DAILY [facility] Last Admin: 07/27/18 09:20 Dose: 40 mg Famotidine (Pepcid) 20 mg PO BID [facility] Last Admin: 07/27/18 09:20 Dose: 20 mg Hydrocortisone (Hydrocortisone) 1 applic TOP BID [facility] Last Admin: 07/27/18 09:21 Dose: 1 applic Sodium Chloride (Normal Saline 0.9%) 1,000 mls @ 125 mls/hr IV .Q8H [facility] Last Infusion: 07/27/18 05:22 Dose: 125 mls/hr Lorazepam (Ativan Inj (Vial)) 1 mg IVP Q30M PRN; Protocol PRN Reason: CIWA >8 Last Admin: 07/26/18 22:52 Dose: 1 mg Multi-Ingredient Ointment (Zinc Oxide) 1 applic TOP PRN PRN PRN Reason: Skin Care Last Admin: 07/25/18 20:40 Dose: 1 applic Ondansetron HCl (Zofran Inj) 4 mg IVP Q6HR PRN PRN Reason: Nausea / Vomiting Last Admin: 07/26/18 22:53 Dose: 4 mg Polyethylene Glycol (Miralax) 17 gm PO DAILY [facility] Last Admin: 07/27/18 09:20 Dose: 17 gm Multivit/Folic Acid/Iron (Trinatal Rx 1) 1 tab PO DAILYWM [facility] Last Admin: 07/27/18 11:40 Dose: 1 tab Senna (Senokot) 8.6 - 17.2 mg PO DAILY [facility] Last Admin: 07/27/18 09:20 Dose: 8.6 mg Sodium Chloride (Normal Saline Flush 0.9%) 10 ml IVP PRN PRN PRN Reason: NEEDED PER PROVIDER ORDERS Last Admin: 07/27/18 05:21 Dose: 10 ml Sodium Chloride (Normal Saline Flush 0.9%) 10 ml IVP 0100,0900,1700 [facility] Last Admin: 07/27/18 09:21 Dose: 10 ml Sodium Phosphate (K-Phos Neutral) 250 mg PO TIDWM [facility] Thiamine HCl (Vitamin B-1) 100 mg PO DAILY [facility] Stop: 07/29/18 09:01 Last Admin: 07/27/18 13:47 Dose: 100 mg Vitamin A/Vitamin D (Vitamin A & D Ointment) 1 applic TOP PRN PRN PRN Reason: Skin Care Last Admin: 07/25/18 20:40 Dose: 1 applic Amlodipine Besylate 5 mg PO DAILY 07/25/18 Lisinopril 20 mg PO DAILY 07/25/18 Pravastatin [Pravachol] 40 mg PO DAILY 07/25/18 Objective - Vital Signs/Intake & Output Reviewed Vital Signs: Yes Vital Signs: Vital Signs x48h Temp Pulse Pulse Resp BP BP Pulse Ox 07/27/18 11:41 100 135/86 H 07/27/18 11:25 94 132/90 H 07/27/18 08:00 36.7 C 94 16 132/90 H 94 Intake & Output: Intake & Output 07/24/18 07/25/18 07/26/18 07/27/18 23:59 23:59 23:59 23:59 Intake Total 1605 3968.2 1989 Output Total 200 251 Balance 1405 3717.2 1989 Objective General Appearance: positive: No acute distress, Alert. negative: Lethargic Eyes Bilateral: positive: Normal inspection, PERRL, No lid inflammation, Conjunctivae nml ENT: positive: ENT inspection nml, Pharynx nml, No signs of dehydration. negative: Purulent nasal drainage, Pharyngeal erythema, Oral lesions Neck: positive: Nml inspection, Thyroid nml, No JVD, Trachea midline. negative: Thyromegaly, Lymphadenopathy (R), Lymphadenopathy (L), Stiff neck, Swelling/bruising, Tracheal deviation Respiratory: positive: Chest non-tender, No respiratory distress, Breath sounds nml. negative: Wheezes, Rales, Rhonchi Cardiovascular: positive: Regular rate & rhythm, No murmur, No gallop. negative: Irregularly irregular, Extrasystoles, Tachycardia, Bradycardia, JVD present, Systolic murmur, Diastolic murmur Peripheral Pulses: 2+ Radial (R), 2+ Radial (L), 2+ Dorsalis pedis (R), 2+ Dorsalis pedis (L) Abdomen: positive: Non-tender, No organomegaly, Nml bowel sounds, No distention. negative: Tenderness, Guarding, Rebound Back: positive: Nml inspection. negative: CVA tenderness (R), CVA tenderness (L) Skin: positive: Color nml, No rash, Warm, Dry. negative: Cyanosis, Diaphoresis, Pallor Extremities: positive: Non-tender, Full ROM, Nml appearance. negative: Pedal edema, Calf tenderness, Joint swelling, Miguel's sign/cords Neurologic/Psychiatric: positive: Sensation nml, Mood/affect nml, Weakness. negative: Sensory loss, Facial droop, Slurred/abnml speech, Depressed mood/affect - Lab Results Fish Bones: 07/27/18 05:23 07/27/18 05:23 Other Labs: Lab Results x24hrs 07/27/18 07/27/18 07/27/18 Range/Units 05:30 05:23 05:23 WBC 6.1 (4.8-10.8) x10^3/uL RBC 3.19 L (4.20-5.40) 10^6/uL Hgb 10.8 L (12.0-16.0) g/dL Hct 31.6 L (37.0-47.0) % MCV 99.1 H (81.0-99.0) fL MCH 33.9 H (27.0-31.0) pg MCHC 34.2 (32.0-36.0) g/dL RDW 14.6 (12.0-15.0) % Plt Count 134 (130-450) 10^3/uL MPV 9.7 (7.9-10.8) fL Neut # (Auto) 3.8 (1.5-6.6) 10^3/uL Lymph # (Auto) 1.5 (1.5-3.5) 10^3/uL [place] # (Auto) 0.6 (0.0-1.0) 10^3/uL Eos # (Auto) 0.1 (0.0-0.7) 10^3/uL Baso # (Auto) 0.1 (0.0-0.1) 10^3/uL Absolute Nucleated RBC 0.00 x10^3/uL Nucleated RBC % 0.0 /100WBC Sodium 136 (135-145) mmol/L Potassium 3.7 (3.5-5.0) mmol/L Chloride 106 (101-111) mmol/L Carbon Dioxide 21 (21-32) mmol/L Anion Gap 9.0 (6-13) BUN 16 (6-20) mg/dL Creatinine 0.5 (0.4-1.0) mg/dL Estimated GFR (MDRD) 125 (>89) Glucose 100 (70-100) mg/dL Calcium 8.8 (8.5-10.3) mg/dL Total Bilirubin 1.3 H (0.2-1.0) mg/dL AST 86 H (10-42) IU/L ALT 61 H (10-60) IU/L Alkaline Phosphatase 50 (42-121) IU/L Total Creatine Kinase 901 H (22-269) IU/L Total Protein 5.5 L (6.7-8.2) g/dL Albumin 3.0 L (3.2-5.5) g/dL Globulin 2.5 (2.1-4.2) g/dL Albumin/Globulin Ratio 1.2 (1.0-2.2) ABX Reporting Has patient been on IV antibiotics over the past 48 hours?: No Assessment/Plan - Problem List (1) Rhabdomyolysis Impression: Conclusion/Plan: 07/27, improved, today CK is down to 900, no muscle cramping continue IVF of NS lab monitor 07/26, CK is down to 1900, denies muscle cramping, continue IVF of NS daily lab monitor elevated CK to 2700 IVF 150 NS check CK daily Monitor renal function. (2) Alcohol intoxication Conclusion/Plan: 07/27 continue CAWA protocol switch to PO prenetal vitmin, folic acid, B1 07/26, CAWA score 8 per nurse report, no seizure continue CAWA protocol continue banna bag ETOH level 157, hx of alcoholic abuse CAWA protocol neuro check lab and vital monitor (3) Alcoholic hepatitis Conclusion/Plan: improved elevated liver enzyme, alcoholic hepatitis advise pt quit alcohol daily lab monitor hold hepatic toxical agents (4) Dehydration Conclusion/Plan: improved continue iVF of ns IVF of NS daily lab monitor (5) Hypoglycemia Conclusion/Plan: stable, D/c ACHS 07/26 continue ACHS hypoglycemia, caused by alcohol abuse and reduced oral glucose intake ACHS, closely monitor regular diet Qualifiers: Rhabdomyolysis type: non-traumatic Qualified Code(s): M62.82 - Rhabdomyolysis (2) Alcohol intoxication Qualifiers: Complication of substance-induced condition: uncomplicated Qualified Code(s): F10.920 - Alcohol use, unspecified with intoxication, uncomplicated (3) Alcoholic hepatitis Qualifiers: Ascites presence: without ascites Qualified Code(s): K70.10 - Alcoholic hepatitis without ascites
[2018-07-27] MEDS: NEUTRA-PHOS 250 MG TABLET PO SCH (16:15)
[2018-07-27] MEDS: LORazepam 2 MG/ML VIAL IVP PRN ×2 (18:44→22:04)
[2018-07-27] MEDS: PRAMIPEXOLE 0.25 MG TABLET PO PRN (18:44)
[2018-07-27] MEDS: ACETAMINOPHEN 325 MG TABLET PO PRN (21:47)
[2018-07-28] MEDS: SODIUM CHLORIDE 0.9% 1,000 ML IV SCH ×3 (00:04→18:59)
[2018-07-28] MEDS: LORazepam 2 MG/ML VIAL IVP PRN ×4 (01:36→10:50)
[2018-07-28 06:32] LABS: BASOPHILS # (AUTO) 0.1 10^3/uL (0.0-0.1); BASOPHILS % (AUTO) 1.1 %; EOSINOPHILS # (AUTO) 0.2 10^3/uL (0.0-0.7); EOSINOPHILS % (AUTO) 2.7 %; HGB - HEMOGLOBIN 11.1 g/dL (12.0-16.0); LYMPHOCYTES # (AUTO) 1.9 10^3/uL (1.5-3.5); LYMPHOCYTES % (AUTO) 26.3 %; MEAN CORPUSCULAR HGB CONC 34.6 g/dL (32.0-36.0); MEAN CORPUSCULAR VOLUME 98.4 fL (81.0-99.0); MEAN PLATELET VOLUME 9.1 fL (7.9-10.8); MONOCYTES # (AUTO) 0.6 10^3/uL (0.0-1.0); MONOCYTES % (AUTO) 7.8 %; NEUTROPHILS # (AUTO) 4.4 10^3/uL (1.5-6.6); NEUTROPHILS % (AUTO) 62.1 %; PLT - PLATELET COUNT 144 10^3/uL (130-450); RED BLOOD COUNT 3.27 10^6/uL (4.20-5.40); RED CELL DISTRIBUTION WIDTH 14.9 % (12.0-15.0); WHITE BLOOD COUNT 7.1 x10^3/uL (4.8-10.8)
[2018-07-28 06:47] LABS: ALBUMIN 3.1 g/dL (3.2-5.5); ALBUMIN/GLOBULIN RATIO 1.2 (1.0-2.2); BILIRUBIN,TOTAL 1.1 mg/dL (0.2-1.0); CALCIUM 8.7 mg/dL (8.5-10.3); CREATININE 0.5 mg/dL (0.4-1.0); TOTAL PROTEIN 5.7 g/dL (6.7-8.2)
[2018-07-28] MEDS: POLYETHYLENE GLYCOL 3350 17 GM PACKET PO SCH ×2 (10:34→10:36)
[2018-07-28] MEDS: DOCUSATE SODIUM 250 MG CAPSULE PO SCH (10:37)
[2018-07-28] MEDS: NEUTRA-PHOS 250 MG TABLET PO SCH ×3 (10:37→17:56)
[2018-07-28] MEDS: PRENATAL VITAMIN TABLET PO SCH (10:37)
[2018-07-28] MEDS: ENOXAPARIN 40 MG/0.4 ML SYRINGE SUBQ SCH (10:38)
[2018-07-28] MEDS: THIAMINE 100 MG TABLET PO SCH (10:40)
[2018-07-28] MEDS: SENNA 8.6 MG TABLET PO SCH (10:40)
[2018-07-28] MEDS: FAMOTIDINE 20 MG TABLET PO SCH ×2 (10:41→20:51)
[2018-07-28] MEDS: HYDROCORTISONE 1% CREAM 28 GM TUBE TOP SCH ×2 (10:47→20:52)
--- NOTE | 2018-07-28 11:56 | PROVIDER PROGRESS NOTE ---
Subjective - Prog Note Date Prog Note Date: 07/28/18 Prog Note Time: 11:56 - Subjective Pt reports feeling: No change Subjective: Shaina appears agitated and will not answer questions when asked. Current Medications - Current Medications Current Medications: Active Medications Acetaminophen (Tylenol) 650 mg PO Q4HR PRN PRN Reason: Pain 1 to 4 Last Admin: 07/27/18 21:47 Dose: 650 mg Docusate Sodium (Colace 250mg Capsule) 250 - 500 mg PO DAILY [facility] Last Admin: 07/28/18 10:37 Dose: 250 mg Enoxaparin Sodium (Lovenox) 40 mg SUBQ DAILY [facility] Last Admin: 07/28/18 10:38 Dose: 40 mg Famotidine (Pepcid) 20 mg PO BID [facility] Last Admin: 07/28/18 10:41 Dose: 20 mg Hydrocortisone (Hydrocortisone) 1 applic TOP BID [facility] Last Admin: 07/28/18 10:47 Dose: 1 applic Sodium Chloride (Normal Saline 0.9%) 1,000 mls @ 125 mls/hr IV .Q8H [facility] Last Admin: 07/28/18 08:53 Dose: 125 mls/hr Lorazepam (Ativan Inj (Vial)) 1 mg IVP Q30M PRN; Protocol PRN Reason: CIWA >8 Last Admin: 07/28/18 10:50 Dose: 1 mg Lorazepam (Ativan Inj (Vial)) 1 mg IVP Q2H [facility] Multi-Ingredient Ointment (Zinc Oxide) 1 applic TOP PRN PRN PRN Reason: Skin Care Last Admin: 07/25/18 20:40 Dose: 1 applic Ondansetron HCl (Zofran Inj) 4 mg IVP Q6HR PRN PRN Reason: Nausea / Vomiting Last Admin: 07/26/18 22:53 Dose: 4 mg Polyethylene Glycol (Miralax) 17 gm PO DAILY [facility] Last Admin: 07/28/18 10:36 Dose: 17 gm Pramipexole Dihydrochloride (Mirapex) 0.25 mg PO TID PRN PRN Reason: Restlessness leg Last Admin: 07/27/18 18:44 Dose: 0.25 mg Multivit/Folic Acid/Iron (Trinatal Rx 1) 1 tab PO DAILYWM [facility] Last Admin: 07/28/18 10:37 Dose: 1 tab Senna (Senokot) 8.6 - 17.2 mg PO DAILY [facility] Last Admin: 07/28/18 10:40 Dose: 8.6 mg Sodium Chloride (Normal Saline Flush 0.9%) 10 ml IVP PRN PRN PRN Reason: NEEDED PER PROVIDER ORDERS Last Admin: 07/27/18 05:21 Dose: 10 ml Sodium Chloride (Normal Saline Flush 0.9%) 10 ml IVP 0100,0900,1700 [facility] Last Admin: 07/27/18 23:21 Dose: Not Given Sodium Phosphate (K-Phos Neutral) 250 mg PO TIDWM [facility] Last Admin: 07/28/18 10:37 Dose: 250 mg Thiamine HCl (Vitamin B-1) 100 mg PO DAILY [facility] Stop: 07/29/18 09:01 Last Admin: 07/28/18 10:40 Dose: 100 mg Vitamin A/Vitamin D (Vitamin A & D Ointment) 1 applic TOP PRN PRN PRN Reason: Skin Care Last Admin: 07/25/18 20:40 Dose: 1 applic Amlodipine Besylate 5 mg PO DAILY 07/25/18 Lisinopril 20 mg PO DAILY 07/25/18 Pravastatin [Pravachol] 40 mg PO DAILY 07/25/18 Objective - Vital Signs/Intake & Output Reviewed Vital Signs: Yes Vital Signs: Vital Signs x48h Temp Pulse Resp BP Pulse Ox 07/28/18 07:57 36.6 C 93 16 146/92 H 96 Intake & Output: Intake & Output 07/25/18 07/26/18 07/27/18 07/28/18 23:59 23:59 23:59 23:59 Intake Total 1605 3968.2 2540 2237.917 Output Total 200 251 100 Balance 1405 3717.2 2440 2237.917 - Objective General Appearance: positive: Alert, Moderate distress, Anxious Eyes: OU Conjunctivae pale ENT: positive: Pharyngeal erythema, Dry mucous membranes Neck: positive: Thyroid nml, No JVD, Trachea midline, Stiff neck Respiratory: positive: Chest non-tender, No respiratory distress, Other (crackles, bilaterally.) Cardiovascular: positive: Regular rate & rhythm, No gallop, Systolic murmur Peripheral Pulses: 1+ Radial (R), 1+ Radial (L) Abdomen: positive: Nml bowel sounds, Other (rounded, firm) Back: positive: Nml inspection Skin: positive: No rash, Warm, Dry, Other (flushed) Extremities: positive: Non-tender, Full ROM, Nml appearance Neurologic/Psychiatric: positive: Disoriented to person, Disoriented to place, Disoriented to time, Weakness, Sensory loss, Slurred/abnml speech, Depressed mood/affect Reflexes: Bicep (R): 3+, Bicep (L): 3+ - Lab Results Fish Bones: 07/29/18 05:30 07/29/18 05:30 Other Labs: Lab Results x24hrs 07/28/18 07/28/18 07/28/18 Range/Units 06:20 06:20 06:20 WBC 7.1 (4.8-10.8) x10^3/uL RBC 3.27 L (4.20-5.40) 10^6/uL Hgb 11.1 L (12.0-16.0) g/dL Hct 32.1 L (37.0-47.0) % MCV 98.4 (81.0-99.0) fL MCH 34.0 H (27.0-31.0) pg MCHC 34.6 (32.0-36.0) g/dL RDW 14.9 (12.0-15.0) % Plt Count 144 (130-450) 10^3/uL MPV 9.1 (7.9-10.8) fL Neut # (Auto) 4.4 (1.5-6.6) 10^3/uL Lymph # (Auto) 1.9 (1.5-3.5) 10^3/uL Elliott # (Auto) 0.6 (0.0-1.0) 10^3/uL Eos # (Auto) 0.2 (0.0-0.7) 10^3/uL Baso # (Auto) 0.1 (0.0-0.1) 10^3/uL Absolute Nucleated RBC 0.00 x10^3/uL Nucleated RBC % 0.0 /100WBC Sodium 135 (135-145) mmol/L Potassium 3.4 L (3.5-5.0) mmol/L Chloride 106 (101-111) mmol/L Carbon Dioxide 23 (21-32) mmol/L Anion Gap 6.0 (6-13) BUN 11 (6-20) mg/dL Creatinine 0.5 (0.4-1.0) mg/dL Estimated GFR (MDRD) 125 (>89) Glucose 100 (70-100) mg/dL Calcium 8.7 (8.5-10.3) mg/dL Total Bilirubin 1.1 H (0.2-1.0) mg/dL AST 76 H (10-42) IU/L ALT 59 (10-60) IU/L Alkaline Phosphatase 51 (42-121) IU/L Total Creatine Kinase 473 H (22-269) IU/L Total Protein 5.7 L (6.7-8.2) g/dL Albumin 3.1 L (3.2-5.5) g/dL Globulin 2.6 (2.1-4.2) g/dL Albumin/Globulin Ratio 1.2 (1.0-2.2) ABX Reporting Has patient been on IV antibiotics over the past 48 hours?: No Assessment/Plan - Problem List (1) Rhabdomyolysis Impression: The patient is a known alcoholic, which likely contributed to this acute rhabdomyolysis with an admission CK of 2700, that has improved to 473 today. Lilly de la rosa appears to be exhibiting ETOH withdrawal symptoms today, so has been on scheduled lorazepam and placed in restraints. Plan: Continue generous IVFs, monitor daily CK, avoid nephrotoxins. Qualifiers: Rhabdomyolysis type: non-traumatic Qualified Code(s): M62.82 - Rhabdomyolysis (2) Agitation Impression: The patient has become more agitated and now has an order for bilateral wrist restraints. Plan: Continue frequent nursing checks, and re-assess for removal. (3) Alcoholic hepatitis Impression: The patient has this disease with LFTs of; AST reduced from 86 to 76, ALT reduced from 61 to 59, and an elevated bili from 1.3, now 1.1. Imaging was not done, but she had a history of this. Plan: continue to monitor daily labs, recommend no further alcohol use. Qualifiers: Ascites presence: without ascites Qualified Code(s): K70.10 - Alcoholic hepatitis without ascites (4) Hypertension Impression: The patient is prescribed 3 agents at home; Qualifiers: Hypertension type: essential hypertension Qualified Code(s): I10 - Essential (primary) hypertension (5) Severe protein-calorie malnutrition Impression: The patient does not have good nutrition due to her chronic daily alcohol use. The patient is thought to be severely malnourished due to not eating for at least 2 weeks, and weight loss of greater than 9% of whole body weight in the past 2 weeks. Plan: Continue to monitor, encourage PO intake, in the chair for meals, and nutrition is following.
[2018-07-28] MEDS ORDERED: SODIUM CHLORIDE FLUSH 0.9% 10 ML SYRINGE ONE (13:02)
[2018-07-28] MEDS: LORazepam 2 MG/ML VIAL IVP SCH ×6 (13:57→22:27)
[2018-07-28] MEDS: SODIUM CHLORIDE FLUSH 0.9% 10 ML SYRINGE IVP SCH ×4 (14:38→23:18)
[2018-07-28] MEDS: NICOTINE 14 MG PATCH TOP SCH (20:51)
[2018-07-29] MEDS: LORazepam 2 MG/ML VIAL IVP SCH ×11 (00:40→21:00)
[2018-07-29] MEDS: SODIUM CHLORIDE 0.9% 1,000 ML IV SCH ×3 (02:49→20:33)
[2018-07-29 06:22] LABS: BASOPHILS % (AUTO) 0.5 %; EOSINOPHILS # (AUTO) 0.1 10^3/uL (0.0-0.7); EOSINOPHILS % (AUTO) 1.2 %; HGB - HEMOGLOBIN 10.5 g/dL (12.0-16.0); LYMPHOCYTES # (AUTO) 1.5 10^3/uL (1.5-3.5); LYMPHOCYTES % (AUTO) 18.2 %; MEAN CORPUSCULAR HEMOGLOBIN 33.6 pg (27.0-31.0); MEAN CORPUSCULAR HGB CONC 34.3 g/dL (32.0-36.0); MEAN PLATELET VOLUME 9.3 fL (7.9-10.8); MONOCYTES # (AUTO) 0.6 10^3/uL (0.0-1.0); MONOCYTES % (AUTO) 7.5 %; NEUTROPHILS # (AUTO) 5.9 10^3/uL (1.5-6.6); NEUTROPHILS % (AUTO) 72.6 %; PLT - PLATELET COUNT 155 10^3/uL (130-450); RED BLOOD COUNT 3.11 10^6/uL (4.20-5.40); RED CELL DISTRIBUTION WIDTH 14.7 % (12.0-15.0); WHITE BLOOD COUNT 8.1 x10^3/uL (4.8-10.8)
[2018-07-29 06:43] LABS: ALBUMIN 2.8 g/dL (3.2-5.5); ALBUMIN/GLOBULIN RATIO 1.2 (1.0-2.2); BILIRUBIN,TOTAL 0.8 mg/dL (0.2-1.0); CALCIUM 8.5 mg/dL (8.5-10.3); CREATININE 0.5 mg/dL (0.4-1.0); TOTAL PROTEIN 5.1 g/dL (6.7-8.2)
[2018-07-29] MEDS: SODIUM CHLORIDE FLUSH 0.9% 10 ML SYRINGE IVP SCH ×2 (08:58→17:26)
[2018-07-29] MEDS: ENOXAPARIN 40 MG/0.4 ML SYRINGE SUBQ SCH (10:17)
[2018-07-29] MEDS: NICOTINE 14 MG PATCH TOP SCH (10:17)
[2018-07-29] MEDS: HYDROCORTISONE 1% CREAM 28 GM TUBE TOP SCH ×2 (10:22→20:34)
[2018-07-29] MEDS: PRENATAL VITAMIN TABLET PO SCH (10:23)
[2018-07-29] MEDS: DOCUSATE SODIUM 250 MG CAPSULE PO SCH (10:23)
[2018-07-29] MEDS: NEUTRA-PHOS 250 MG TABLET PO SCH (10:23)
[2018-07-29] MEDS: FAMOTIDINE 20 MG TABLET PO SCH ×2 (10:23→21:18)
[2018-07-29] MEDS: SENNA 8.6 MG TABLET PO SCH (10:24)
[2018-07-29] MEDS: THIAMINE 100 MG TABLET PO SCH (10:24)
--- NOTE | 2018-07-29 11:51 | PROVIDER PROGRESS NOTE ---
Subjective - Prog Note Date Prog Note Date: 07/29/18 Prog Note Time: 11:50 - Subjective Pt reports feeling: Improved Subjective: Shaina is unable to answer questions when asked, similar to yesterday, but appears less agitated and more alert. Current Medications - Current Medications Current Medications: Active Medications Acetaminophen (Tylenol) 650 mg PO Q4HR PRN PRN Reason: Pain 1 to 4 Last Admin: 07/27/18 21:47 Dose: 650 mg Amlodipine Besylate (Norvasc) 5 mg PO DAILY [facility] Docusate Sodium (Colace 250mg Capsule) 250 - 500 mg PO DAILY [facility] Last Admin: 07/29/18 10:23 Dose: Not Given Enoxaparin Sodium (Lovenox) 40 mg SUBQ DAILY [facility] Last Admin: 07/29/18 10:17 Dose: 40 mg Famotidine (Pepcid) 20 mg PO BID [facility] Last Admin: 07/29/18 10:23 Dose: Not Given Hydrocortisone (Hydrocortisone) 1 applic TOP BID [facility] Last Admin: 07/29/18 10:22 Dose: 1 applic Sodium Chloride (Normal Saline 0.9%) 1,000 mls @ 125 mls/hr IV .Q8H [facility] Last Admin: 07/29/18 11:34 Dose: 125 mls/hr Lisinopril (Zestril) 20 mg PO DAILY [facility] Lorazepam (Ativan Inj (Vial)) 1 mg IVP Q30M PRN; Protocol PRN Reason: CIWA >8 Last Admin: 07/28/18 10:50 Dose: 1 mg Lorazepam (Ativan Inj (Vial)) 1 mg IVP Q2H [facility] Last Admin: 07/29/18 11:47 Dose: 1 mg Multi-Ingredient Ointment (Zinc Oxide) 1 applic TOP PRN PRN PRN Reason: Skin Care Last Admin: 07/25/18 20:40 Dose: 1 applic Nicotine (Nicoderm) 1 patch TOP DAILY [facility] Last Admin: 07/29/18 10:17 Dose: 1 patch Ondansetron HCl (Zofran Inj) 4 mg IVP Q6HR PRN PRN Reason: Nausea / Vomiting Last Admin: 07/26/18 22:53 Dose: 4 mg Polyethylene Glycol (Miralax) 17 gm PO DAILY [facility] Last Admin: 07/28/18 10:36 Dose: 17 gm Pramipexole Dihydrochloride (Mirapex) 0.25 mg PO TID PRN PRN Reason: Restlessness leg Last Admin: 07/27/18 18:44 Dose: 0.25 mg Pravastatin Sodium (Pravachol) 40 mg PO DAILY [facility] Multivit/Folic Acid/Iron (Trinatal Rx 1) 1 tab PO DAILYWM [facility] Last Admin: 07/29/18 10:23 Dose: Not Given Senna (Senokot) 8.6 mg PO DAILY [facility] Sodium Chloride (Normal Saline Flush 0.9%) 10 ml IVP PRN PRN PRN Reason: NEEDED PER PROVIDER ORDERS Last Admin: 07/27/18 05:21 Dose: 10 ml Sodium Chloride (Normal Saline Flush 0.9%) 10 ml IVP 0100,0900,1700 [facility] Last Admin: 07/29/18 08:58 Dose: 10 ml Vitamin A/Vitamin D (Vitamin A & D Ointment) 1 applic TOP PRN PRN PRN Reason: Skin Care Last Admin: 07/25/18 20:40 Dose: 1 applic Amlodipine Besylate 5 mg PO DAILY 07/25/18 Lisinopril 20 mg PO DAILY 07/25/18 Pravastatin [Pravachol] 40 mg PO DAILY 07/25/18 Objective - Vital Signs/Intake & Output Reviewed Vital Signs: Yes Intake & Output: Intake & Output 07/26/18 07/27/18 07/28/18 07/29/18 23:59 23:59 23:59 23:59 Intake Total 3968.2 2540 3477.917 Output Total 251 100 50 Balance 3717.2 2440 3427.917 1978.167 - Objective General Appearance: positive: Alert, Moderate distress Eyes Bilateral: positive: PERRL, No lid inflammation Eyes: OU Scleral icterus ENT: positive: Pharynx nml, No signs of dehydration Neck: positive: Nml inspection, No JVD, Trachea midline Respiratory: positive: Chest non-tender, No respiratory distress, Other (diminshed.) Cardiovascular: positive: Regular rate & rhythm, No gallop, Systolic murmur, Decreased pulse(s) Peripheral Pulses: 1+ Radial (R), 1+ Radial (L) Abdomen: positive: Non-tender, Nml bowel sounds, Hepatomegaly Back: positive: Nml inspection Skin: positive: No rash, Warm, Dry, Other (bronze skin) Extremities: positive: Non-tender, Full ROM, Pedal edema Neurologic/Psychiatric: positive: CN's nml (2-12), Sensation nml, Disoriented to person, Disoriented to place, Disoriented to time, Weakness, Sensory loss, Slurred/abnml speech, Depressed mood/affect Reflexes: Bicep (R): 3+, Bicep (L): 3+ - Lab Results Fish Bones: 07/29/18 05:30 07/29/18 05:30 Other Labs: Lab Results x24hrs 07/29/18 07/29/18 07/29/18 Range/Units 09:32 05:30 05:30 WBC 8.1 (4.8-10.8) x10^3/uL RBC 3.11 L (4.20-5.40) 10^6/uL Hgb 10.5 L (12.0-16.0) g/dL Hct 30.5 L (37.0-47.0) % MCV 98.0 (81.0-99.0) fL MCH 33.6 H (27.0-31.0) pg MCHC 34.3 (32.0-36.0) g/dL RDW 14.7 (12.0-15.0) % Plt Count 155 (130-450) 10^3/uL MPV 9.3 (7.9-10.8) fL Neut # (Auto) 5.9 (1.5-6.6) 10^3/uL Lymph # (Auto) 1.5 (1.5-3.5) 10^3/uL Baker # (Auto) 0.6 (0.0-1.0) 10^3/uL Eos # (Auto) 0.1 (0.0-0.7) 10^3/uL Baso # (Auto) 0.0 (0.0-0.1) 10^3/uL Absolute Nucleated RBC 0.00 x10^3/uL Nucleated RBC % 0.0 /100WBC Sodium 140 (135-145) mmol/L Potassium 3.4 L (3.5-5.0) mmol/L Chloride 107 (101-111) mmol/L Carbon Dioxide 22 (21-32) mmol/L Anion Gap 11.0 (6-13) BUN 7 (6-20) mg/dL Creatinine 0.5 (0.4-1.0) mg/dL Estimated GFR (MDRD) 125 (>89) Glucose 95 (70-100) mg/dL Calcium 8.5 (8.5-10.3) mg/dL Total Bilirubin 0.8 (0.2-1.0) mg/dL AST 59 H (10-42) IU/L ALT 50 (10-60) IU/L Alkaline Phosphatase 48 (42-121) IU/L Total Creatine Kinase 430 H (22-269) IU/L Total Protein 5.1 L (6.7-8.2) g/dL Albumin 2.8 L (3.2-5.5) g/dL Globulin 2.3 (2.1-4.2) g/dL Albumin/Globulin Ratio 1.2 (1.0-2.2) ABX Reporting Has patient been on IV antibiotics over the past 48 hours?: No Assessment/Plan - Problem List (1) Rhabdomyolysis Impression: The patient is a known alcoholic, which likely contributed to this acute rhabdomyolysis with an admission CK of 2700, that has improved to 406 today. She appears to be exhibiting ETOH withdrawal symptoms today, so has been on sche duled lorazepam and placed in restraints. Plan: Continue generous IVFs, monitor daily CK, avoid nephrotoxins. Qualifiers: Rhabdomyolysis type: non-traumatic Qualified Code(s): M62.82 - Rhabdomyolysis (2) Agitation Impression: The patient has become more agitated and yesterday an order for bilateral wrist restraints was placed. She has continued to require this since yesterday, so the order has been renewed. She has also been chemically restrained with IV lorazepam. Plan: Continue frequent nursing checks, and re-assess for removal. (3) Alcoholic hepatitis Impression: The patient has this disease with LFTs of; AST reduced from 86 to 59, ALT reduced from 61 to 50, and an elevated bili from 1.3, now 0.8. Imaging was not done, but she had a history of this. Plan: continue to monitor daily labs, recommend no further alcohol use. Qualifiers: Ascites presence: without ascites Qualified Code(s): K70.10 - Alcoholic hepatitis without ascites (4) Hypertension Impression: The patient is prescribed 2 agents at home; Norvasc and lisinopril, but she may be non-compliant given her daily alcohol use. She has been having elevated blood pressures while here and today has a blood pressure of 138/81, so her lisinopril was resumed today, with Norvasc to start tomorrow. Plan: Continue to monitor blood pressure, and give oral meds. Qualifiers: Hypertension type: essential hypertension Qualified Code(s): I10 - Essential (primary) hypertension (5) Severe protein-calorie malnutrition Impression: The patient does not have good nutrition due to her chronic daily alcohol use. The patient is thought to be severely malnourished due to not eating for at leas t 2 weeks, and weight loss of greater than 9% of whole body weight in the past 2 weeks. She is also found to have a reduced albumin at 3.1 and a low total protein at 5.7. Plan: Continue to monitor, encourage PO intake, in the chair for meals, and nutrition is following.
[2018-07-29] MEDS: LISINOPRIL 20 MG TABLET PO SCH (12:59)
[2018-07-29] MEDS: SODIUM CHLORIDE FLUSH 0.9% 10 ML SYRINGE IVP PRN (18:33)
[2018-07-30] MEDS: SODIUM CHLORIDE FLUSH 0.9% 10 ML SYRINGE IVP SCH ×3 (02:18→17:00)
[2018-07-30] MEDS: SODIUM CHLORIDE FLUSH 0.9% 10 ML SYRINGE IVP PRN (02:53)
[2018-07-30] MEDS: LORazepam 2 MG/ML VIAL IVP PRN (04:04)
[2018-07-30] MEDS: SODIUM CHLORIDE 0.9% 1,000 ML IV SCH ×2 (04:12→06:21)
[2018-07-30 05:52] LABS: BASOPHILS % (AUTO) 0.4 %; EOSINOPHILS # (AUTO) 0.1 10^3/uL (0.0-0.7); EOSINOPHILS % (AUTO) 1.5 %; HGB - HEMOGLOBIN 10.8 g/dL (12.0-16.0); LYMPHOCYTES # (AUTO) 1.5 10^3/uL (1.5-3.5); MEAN CORPUSCULAR HEMOGLOBIN 33.9 pg (27.0-31.0); MEAN CORPUSCULAR HGB CONC 34.6 g/dL (32.0-36.0); MEAN PLATELET VOLUME 9.2 fL (7.9-10.8); MONOCYTES # (AUTO) 0.8 10^3/uL (0.0-1.0); MONOCYTES % (AUTO) 10.7 %; NEUTROPHILS # (AUTO) 4.8 10^3/uL (1.5-6.6); NEUTROPHILS % (AUTO) 66.4 %; PLT - PLATELET COUNT 184 10^3/uL (130-450); RED BLOOD COUNT 3.18 10^6/uL (4.20-5.40); RED CELL DISTRIBUTION WIDTH 15.2 % (12.0-15.0); WHITE BLOOD COUNT 7.3 x10^3/uL (4.8-10.8)
[2018-07-30 06:01] LABS: ALBUMIN 2.8 g/dL (3.2-5.5); ALBUMIN/GLOBULIN RATIO 1.1 (1.0-2.2); BILIRUBIN,TOTAL 0.4 mg/dL (0.2-1.0); CALCIUM 8.3 mg/dL (8.5-10.3); CREATININE 0.5 mg/dL (0.4-1.0); MAGNESIUM 1.4 mg/dL (1.7-2.8); TOTAL PROTEIN 5.4 g/dL (6.7-8.2)
[2018-07-30] MEDS ORDERED: METOPROLOL SUCCINATE 50 MG TABLET PO SCH (09:00)
[2018-07-30] MEDS: amLODIPine 5 MG TABLET PO SCH (09:18)
[2018-07-30] MEDS: PRENATAL VITAMIN TABLET PO SCH (09:18)
[2018-07-30] MEDS: DOCUSATE SODIUM 250 MG CAPSULE PO SCH (09:19)
[2018-07-30] MEDS: ENOXAPARIN 40 MG/0.4 ML SYRINGE SUBQ SCH (09:19)
[2018-07-30] MEDS: LISINOPRIL 20 MG TABLET PO SCH (09:21)
[2018-07-30] MEDS: FAMOTIDINE 20 MG TABLET PO SCH ×2 (09:21→21:06)
[2018-07-30] MEDS: SENNA 8.6 MG TABLET PO SCH (09:22)
[2018-07-30] MEDS: NICOTINE 14 MG PATCH TOP SCH (09:22)
[2018-07-30] MEDS: PRAVASTATIN 40 MG TABLET PO SCH (09:22)
[2018-07-30] MEDS: POLYETHYLENE GLYCOL 3350 17 GM PACKET PO SCH (09:22)
[2018-07-30] MEDS: CHLORHEXIDINE GLUCONATE 15 ML UDC PO SCH ×2 (10:40→21:06)
[2018-07-30] MEDS: SPIRONOLACTONE 25 MG TABLET PO SCH (10:43)
[2018-07-30] MEDS: HYDROCORTISONE 1% CREAM 28 GM TUBE TOP SCH ×2 (10:45→21:07)
[2018-07-30] MEDS ORDERED: POTASSIUM CHLORIDE 20 MEQ TABLET PO SCH (14:09)
[2018-07-30] MEDS ORDERED: LORazepam 0.5 MG TABLET PO PRN (14:11)
[2018-07-30] MEDS: ACETAMINOPHEN 325 MG TABLET PO PRN (14:59)
[2018-07-30] MEDS: MAGNESIUM OXIDE 400 MG TABLET PO SCH (17:00)
--- NOTE | 2018-07-30 18:27 | PROVIDER PROGRESS NOTE ---
Subjective - Prog Note Date Prog Note Date: 07/30/18 Prog Note Time: 18:19 - Subjective Pt reports feeling: Improved Subjective: Shaina complains of increased restless legs today and left ankle pain that became worse today after getting out of bed with the geovanny lift. She denies chest pain, nausea, vomiting, rashes, dizziness, headaches, hallucinations, sweating, overwhelming anxiety, or a new cough. Current Medications - Current Medications Current Medications: Active Medications Acetaminophen (Tylenol) 650 mg PO Q4HR PRN PRN Reason: Pain 1 to 4 Last Admin: 07/30/18 14:59 Dose: 650 mg Amlodipine Besylate (Norvasc) 5 mg PO DAILY [facility] Last Admin: 07/30/18 09:18 Dose: 5 mg Chlorhexidine Gluconate (Peridex) 15 ml PO BID [facility] Last Admin: 07/30/18 10:40 Dose: 15 ml Docusate Sodium (Colace 250mg Capsule) 250 - 500 mg PO DAILY [facility] Last Admin: 07/30/18 09:19 Dose: 250 mg Enoxaparin Sodium (Lovenox) 40 mg SUBQ DAILY [facility] Last Admin: 07/30/18 09:19 Dose: 40 mg Famotidine (Pepcid) 20 mg PO BID [facility] Last Admin: 07/30/18 09:21 Dose: 20 mg Gabapentin (Neurontin) 100 mg PO TID [facility] Hydrocortisone (Hydrocortisone) 1 applic TOP BID [facility] Last Admin: 07/30/18 10:45 Dose: 1 applic Lisinopril (Zestril) 20 mg PO DAILY [facility] Last Admin: 07/30/18 09:21 Dose: 20 mg Lorazepam (Ativan) 1 mg PO Q4H PRN PRN Reason: Anxiety Magnesium Oxide (Mag Ox) 400 mg PO BIDWM [facility] Last Admin: 07/30/18 17:00 Dose: 400 mg Metoprolol Succinate (Toprol Xl) 50 mg PO BIDWM [facility] Multi-Ingredient Ointment (Zinc Oxide) 1 applic TOP PRN PRN PRN Reason: Skin Care Last Admin: 07/25/18 20:40 Dose: 1 applic Nicotine (Nicoderm) 1 patch TOP DAILY [facility] Last Admin: 07/30/18 09:22 Dose: 1 patch Ondansetron HCl (Zofran Inj) 4 mg IVP Q6HR PRN PRN Reason: Nausea / Vomiting Last Admin: 07/26/18 22:53 Dose: 4 mg Polyethylene Glycol (Miralax) 17 gm PO DAILY [facility] Last Admin: 07/30/18 09:22 Dose: 17 gm Pramipexole Dihydrochloride (Mirapex) 0.25 mg PO TID PRN PRN Reason: Restlessness leg Last Admin: 07/27/18 18:44 Dose: 0.25 mg Pravastatin Sodium (Pravachol) 40 mg PO DAILY [facility] Last Admin: 07/30/18 09:22 Dose: 40 mg Multivit/Folic Acid/Iron (Trinatal Rx 1) 1 tab PO DAILYWM [facility] Last Admin: 07/30/18 09:18 Dose: 1 tab Quetiapine Fumarate (Seroquel) 25 mg PO QPM [facility] Senna (Senokot) 8.6 mg PO DAILY [facility] Last Admin: 07/30/18 09:22 Dose: 8.6 mg Sodium Chloride (Normal Saline Flush 0.9%) 10 ml IVP PRN PRN PRN Reason: NEEDED PER PROVIDER ORDERS Last Admin: 07/30/18 02:53 Dose: 10 ml Sodium Chloride (Normal Saline Flush 0.9%) 10 ml IVP 0100,0900,1700 [facility] Last Admin: 07/30/18 17:00 Dose: 10 ml Spironolactone (Aldactone) 25 mg PO DAILY [facility] Last Admin: 07/30/18 10:43 Dose: 25 mg Vitamin A/Vitamin D (Vitamin A & D Ointment) 1 applic TOP PRN PRN PRN Reason: Skin Care Last Admin: 07/25/18 20:40 Dose: 1 applic Amlodipine Besylate 5 mg PO DAILY 07/25/18 Lisinopril 20 mg PO DAILY 07/25/18 Pravastatin [Pravachol] 40 mg PO DAILY 07/25/18 Objective - Vital Signs/Intake & Output Reviewed Vital Signs: Yes Vital Signs: Vital Signs x48h Temp Pulse Resp BP Pulse Ox 07/30/18 15:20 36.9 C 79 18 117/82 H 94 Intake & Output: Intake & Output 07/27/18 07/28/18 07/29/18 07/30/18 23:59 23:59 23:59 23:59 Intake Total 2540 3477.917 3299.167 1720.833 Output Total 100 50 100 Balance 2440 3427.917 3299.167 1620.833 - Objective General Appearance: positive: Alert, Mild distress, Anxious, Other (tearful at times.) Eyes Bilateral: positive: PERRL Eyes: OU Conjunctivae pale, OU Scleral icterus ENT: positive: Pharynx nml, No signs of dehydration, Pharyngeal erythema, Oral lesions (extensive dental caries and halitosis) Neck: positive: Thyroid nml, No JVD, Trachea midline, Stiff neck Respiratory: positive: Chest non-tender, No respiratory distress, Other (diminished) Cardiovascular: positive: Regular rate & rhythm, Tachycardia, Systolic murmur, Decreased pulse(s) Peripheral Pulses: 1+ Radial (R), 1+ Radial (L) Abdomen: positive: Non-tender, Nml bowel sounds, Other (rounded, soft) Back: positive: Nml inspection Skin: positive: No rash, Warm, Dry, Pallor, Other (poor skin turgor) Extremities: positive: Pedal edema, Joint swelling, Other (deformed BLEs, with ankle swelling) Neurologic/Psychiatric: positive: Oriented x3, Weakness, Sensory loss, Slurred/abnml speech, Depressed mood/affect Reflexes: Bicep (R): 2+, Bicep (L): 2+ - Lab Results Fish Bones: 07/30/18 05:19 07/30/18 05:19 Other Labs: Lab Results x24hrs 07/30/18 07/30/18 07/30/18 Range/Units 05:19 05:19 05:19 WBC 7.3 (4.8-10.8) x10^3/uL RBC 3.18 L (4.20-5.40) 10^6/uL Hgb 10.8 L (12.0-16.0) g/dL Hct 31.2 L (37.0-47.0) % MCV 98.0 (81.0-99.0) fL MCH 33.9 H (27.0-31.0) pg MCHC 34.6 (32.0-36.0) g/dL RDW 15.2 H (12.0-15.0) % Plt Count 184 (130-450) 10^3/uL MPV 9.2 (7.9-10.8) fL Neut # (Auto) 4.8 (1.5-6.6) 10^3/uL Lymph # (Auto) 1.5 (1.5-3.5) 10^3/uL [place] # (Auto) 0.8 (0.0-1.0) 10^3/uL Eos # (Auto) 0.1 (0.0-0.7) 10^3/uL Baso # (Auto) 0.0 (0.0-0.1) 10^3/uL Absolute Nucleated RBC 0.00 x10^3/uL Nucleated RBC % 0.0 /100WBC Sodium 140 (135-145) mmol/L Potassium 2.6 L (3.5-5.0) mmol/L Chloride 109 (101-111) mmol/L Carbon Dioxide 21 (21-32) mmol/L Anion Gap 10.0 (6-13) BUN 7 (6-20) mg/dL Creatinine 0.5 (0.4-1.0) mg/dL Estimated GFR (MDRD) 125 (>89) Glucose 101 H (70-100) mg/dL Calcium 8.3 L (8.5-10.3) mg/dL Magnesium 1.4 L (1.7-2.8) mg/dL Total Bilirubin 0.4 (0.2-1.0) mg/dL AST 50 H (10-42) IU/L ALT 46 (10-60) IU/L Alkaline Phosphatase 53 (42-121) IU/L Total Creatine Kinase 356 H (22-269) IU/L Total Protein 5.4 L (6.7-8.2) g/dL Albumin 2.8 L (3.2-5.5) g/dL Globulin 2.6 (2.1-4.2) g/dL Albumin/Globulin Ratio 1.1 (1.0-2.2) ABX Reporting Has patient been on IV antibiotics over the past 48 hours?: No Assessment/Plan - Problem List (1) Dental caries Impression: The patient is found to have very poor oral health. Nursing staff notes that as they were brushing her teeth today, they found that one of her molars was loose. On my exam the patient had nearly all of her molars with noticeable decay and they were discolored with a black, avery or brown appearance. The patient states that her left cheek is the most sore and she has had difficulty with chewing for several months. These did not appear to be causing facial swelling. A call to Dr. Rice, oral and facial surgery was made to get his recommendations on ongoing care and he does not advise antibiotic treatment at this time unless the patient has obvious signs of infection. I have added Chlorhexadine rinse to be used as a swish and spit BID scheduled, indefinitely. Plan: Continue Chlorhexadine BID and monitor for increased pain or signs of infection. (2) Left ankle pain Impression: The patient states that today her legs are very restless, which causes pain to her left ankle. On my exam, her left ankle is more swollen than her right and she is unable to move it. Both feet seemed deformed and bent inward. She states that she was in so much pain today during her transfer to the chair, in which a geovanny lift was used. She states that she falls at home several times per week, and most times refuses to be transferred to the hospital. She states that she has never fractured any bones from her falls. Plan: Obtain a 2 view ankle x-ray for BLE, treat pain, and await results. Qualifiers: Chronicity: unspecified Qualified Code(s): M25.572 - Pain in left ankle and joints of left foot (3) Restless legs Impression: The patient states that she has had this before, but today this symptom has become much worse. Plan: Start scheduled gabapentin TID at a low dose of 100mg, and monitor for improvement. (4) Rhabdomyolysis Impression: The patient is a known alcoholic, which likely contributed to this acute rhabdomyolysis with an admission CK of 2700, that has improved to 356 today. She is no longer considered to be in active alcohol withdrawal and is orientated on exam. She is no longer on continuous IV fluids and will likely continue to improve by taking enough oral fluids. Plan: Monitor daily CK, avoid nephrotoxins. Qualifiers: Rhabdomyolysis type: non-traumatic Qualified Code(s): M62.82 - Rhabdomyolysis (5) Agitation Impression: This is much improved today, so I have now stopped her scheduled lorazepam, and left it on her list to be given as needed. She has been taken off CIWA as well. She is A & O x4, and is aware of her medical condition. She is agreeable to detention placement as she can barely bear weight on her BLEs. Plan: continue to monitor, give scheduled gabapentin, lorazepam as needed and start seroquel for sleep tonight. (6) Alcoholic hepatitis Impression: The patient has this disease with elevated LFTs on admission that are nearly resolved today. She does not appear jaundice on exam. Imaging was not done, but she had a history of heavy alcohol use that has become worse after her work- related back injury in 2009. She states that she can slovak off a whole bottle of whiskey in less than 24 hours and only drinks at night. She states that she wishes to stop drinking and is agreeable to SNF for PT/OT. Plan: continue to monitor daily labs, recommend no further alcohol use. Qualifiers: Ascites presence: without ascites Qualified Code(s): K70.10 - Alcoholic hepatitis without ascites (7) Hypertension Impression: The patient is prescribed 2 agents at home; Norvasc and lisinopril, but she may be non-compliant given her daily alcohol use. She has been having elevated blood pressures while here, so her lisinopril was resumed yesterday, with Norvasc that was resumed today. She had an echocardiogram with final results showing pulmonary HTN, and LVH. Plan: Continue to monitor blood pressure, and give oral meds. Qualifiers: Hypertension type: essential hypertension Qualified Code(s): I10 - Essential (primary) hypertension (8) Severe protein-calorie malnutrition Impression: The patient does not have good nutrition due to her chronic daily alcohol use. The patient is thought to be severely malnourished due to not eating for at least 2 weeks, and weight loss of greater than 9% of whole body weight in the past 2 weeks. She is also found to have a reduced nutrition labs, that is ongoing. She has been changed to a baby food diet given her extensive dental caries. Plan: Continue to monitor, encourage PO intake, in the chair for meals, and nutrition is following.
--- NOTE | 2018-07-30 19:26 | XRAY Report ---
Reason: pain, deformity Procedure Date: 07/30/2018 Accession Number: [id number] / [id number] Procedure: XR - Ankle 2 View LT CPT Code: FULL RESULT: EXAM: LEFT ANKLE RADIOGRAPHY EXAM DATE: 07/30/2018 07:04 PM. CLINICAL HISTORY: Pain, deformity. COMPARISON: None available. TECHNIQUE: 2 views. FINDINGS: The lateral view is limited by patient positioning. There is focal smooth periosteal reaction involving the distal/medial left tibia, which is nonspecific. Otherwise no acute fracture or dislocation visualized. There is diffuse osteopenia. There is significant bimalleolar soft tissue swelling, medial more than lateral. IMPRESSION: Osteopenia. Nonspecific smooth periosteal reaction involving the distal/medial tibia, possibly from healing fracture or other bony pathology. Significant bimalleolar soft tissue swelling, medial more than lateral. [facility]
--- NOTE | 2018-07-30 19:28 | XRAY Report ---
Reason: pain, deformity Procedure Date: 07/30/2018 Accession Number: [id number] / [id number] Procedure: XR - Ankle 2 View RT CPT Code: FULL RESULT: EXAM: RIGHT ANKLE RADIOGRAPHY EXAM DATE: 07/30/2018 06:44 PM. CLINICAL HISTORY: Pain, deformity. COMPARISON: None available. TECHNIQUE: 2 views. FINDINGS: Diffuse osteopenia. Lateral view is limited by patient positioning. No acute fracture or dislocation visualized. Diffuse soft tissue swelling, medial more than lateral. IMPRESSION: Osteopenia. No definite fracture or dislocation visualized. Diffuse soft tissue swelling, medial more than lateral. [facility]
[2018-07-30] MEDS: PRAMIPEXOLE 0.25 MG TABLET PO PRN (21:06)
[2018-07-30] MEDS: QUEtiapine 25 MG TABLET PO SCH (21:06)
[2018-07-30] MEDS: GABAPENTIN 100 MG CAPSULE PO SCH (21:06)
[2018-07-31] MEDS: SODIUM CHLORIDE FLUSH 0.9% 10 ML SYRINGE IVP SCH ×3 (00:39→17:55)
[2018-07-31] MEDS: ACETAMINOPHEN 325 MG TABLET PO PRN ×3 (00:56→15:02)
[2018-07-31] MEDS: GABAPENTIN 100 MG CAPSULE PO SCH ×3 (05:20→20:43)
[2018-07-31 05:45] LABS: EOSINOPHILS # (AUTO) 0.2 10^3/uL (0.0-0.7); PLT - PLATELET COUNT 204 10^3/uL (130-450); WHITE BLOOD COUNT 7.8 x10^3/uL (4.8-10.8)
[2018-07-31 05:55] LABS: BASOPHILS % (AUTO) 0.5 %; HGB - HEMOGLOBIN 10.3 g/dL (12.0-16.0); LYMPHOCYTES # (AUTO) 2.1 10^3/uL (1.5-3.5); LYMPHOCYTES % (AUTO) 26.8 %; MEAN CORPUSCULAR HEMOGLOBIN 33.8 pg (27.0-31.0); MEAN CORPUSCULAR HGB CONC 34.1 g/dL (32.0-36.0); MEAN PLATELET VOLUME 9.5 fL (7.9-10.8); MONOCYTES # (AUTO) 0.8 10^3/uL (0.0-1.0); MONOCYTES % (AUTO) 9.9 %; NEUTROPHILS # (AUTO) 4.8 10^3/uL (1.5-6.6); NEUTROPHILS % (AUTO) 60.8 %; RED BLOOD COUNT 3.04 10^6/uL (4.20-5.40); RED CELL DISTRIBUTION WIDTH 15.4 % (12.0-15.0)
[2018-07-31 05:57] LABS: ALBUMIN 2.7 g/dL (3.2-5.5); ALBUMIN/GLOBULIN RATIO 1.1 (1.0-2.2); BILIRUBIN,TOTAL 0.7 mg/dL (0.2-1.0); CALCIUM 8.8 mg/dL (8.5-10.3); CREATININE 0.5 mg/dL (0.4-1.0); MAGNESIUM 1.5 mg/dL (1.7-2.8); PHOSPHORUS 3.9 mg/dL (2.5-4.6); TOTAL PROTEIN 5.2 g/dL (6.7-8.2)
[2018-07-31] MEDS: PRAVASTATIN 40 MG TABLET PO SCH (09:03)
[2018-07-31] MEDS: MAGNESIUM OXIDE 400 MG TABLET PO SCH ×2 (09:03→17:55)
[2018-07-31] MEDS: PRENATAL VITAMIN TABLET PO SCH (09:03)
[2018-07-31] MEDS: SENNA 8.6 MG TABLET PO SCH (09:03)
[2018-07-31] MEDS: DOCUSATE SODIUM 250 MG CAPSULE PO SCH (09:03)
[2018-07-31] MEDS: FAMOTIDINE 20 MG TABLET PO SCH ×2 (09:03→20:43)
[2018-07-31] MEDS: LISINOPRIL 20 MG TABLET PO SCH (09:06)
[2018-07-31] MEDS: SPIRONOLACTONE 25 MG TABLET PO SCH (09:06)
[2018-07-31] MEDS: amLODIPine 5 MG TABLET PO SCH (09:06)
[2018-07-31] MEDS: CHLORHEXIDINE GLUCONATE 15 ML UDC PO SCH ×2 (09:07→20:43)
[2018-07-31] MEDS: POLYETHYLENE GLYCOL 3350 17 GM PACKET PO SCH (09:07)
[2018-07-31] MEDS: METOPROLOL SUCCINATE 50 MG TABLET PO SCH ×2 (09:07→17:54)
[2018-07-31] MEDS: ENOXAPARIN 40 MG/0.4 ML SYRINGE SUBQ SCH (09:07)
[2018-07-31] MEDS: NICOTINE 14 MG PATCH TOP SCH (09:08)
[2018-07-31] MEDS: HYDROCORTISONE 1% CREAM 28 GM TUBE TOP SCH ×2 (14:51→20:54)
--- NOTE | 2018-07-31 17:13 | PROVIDER PROGRESS NOTE ---
Subjective - Prog Note Date Prog Note Date: 07/31/18 Prog Note Time: 08:30 - Subjective Pt reports feeling: Improved Subjective: Shaina has no complaints except extreme weakness and lethargy. She denies chest pain, nausea, vomiting, rashes, dizziness, headaches, anxiety, sweating, hallucinations or a new cough. She states that since adding the neurontin, her restless legs have improved. Current Medications - Current Medications Current Medications: Active Medications Acetaminophen (Tylenol) 650 mg PO Q4HR PRN PRN Reason: Pain 1 to 4 Last Admin: 07/31/18 15:02 Dose: 650 mg Amlodipine Besylate (Norvasc) 5 mg PO DAILY [facility] Last Admin: 07/31/18 09:06 Dose: 5 mg Chlorhexidine Gluconate (Peridex) 15 ml PO BID [facility] Last Admin: 07/31/18 09:07 Dose: 15 ml Docusate Sodium (Colace 250mg Capsule) 250 - 500 mg PO DAILY [facility] Last Admin: 07/31/18 09:03 Dose: 250 mg Enoxaparin Sodium (Lovenox) 40 mg SUBQ DAILY [facility] Last Admin: 07/31/18 09:07 Dose: 40 mg Famotidine (Pepcid) 20 mg PO BID [facility] Last Admin: 07/31/18 09:03 Dose: 20 mg Gabapentin (Neurontin) 100 mg PO TID [facility] Last Admin: 07/31/18 15:02 Dose: 100 mg Hydrocortisone (Hydrocortisone) 1 applic TOP BID [facility] Last Admin: 07/31/18 14:51 Dose: Not Given Lisinopril (Zestril) 20 mg PO DAILY [facility] Last Admin: 07/31/18 09:06 Dose: 20 mg Lorazepam (Ativan) 1 mg PO Q4H PRN PRN Reason: Anxiety Magnesium Oxide (Mag Ox) 400 mg PO BIDWM [facility] Last Admin: 07/31/18 17:55 Dose: 400 mg Metoprolol Succinate (Toprol Xl) 50 mg PO BIDWM [facility] Last Admin: 07/31/18 17:54 Dose: 50 mg Multi-Ingredient Ointment (Zinc Oxide) 1 applic TOP PRN PRN PRN Reason: Skin Care Last Admin: 07/25/18 20:40 Dose: 1 applic Nicotine (Nicoderm) 1 patch TOP DAILY [facility] Last Admin: 10/26/18 09:08 Dose: 1 patch Ondansetron HCl (Zofran Inj) 4 mg IVP Q6HR PRN PRN Reason: Nausea / Vomiting Last Admin: 07/26/18 22:53 Dose: 4 mg Polyethylene Glycol (Miralax) 17 gm PO DAILY [facility] Last Admin: 07/31/18 09:07 Dose: 17 gm Pramipexole Dihydrochloride (Mirapex) 0.25 mg PO TID PRN PRN Reason: Restlessness leg Last Admin: 07/30/18 21:06 Dose: 0.25 mg Pravastatin Sodium (Pravachol) 40 mg PO DAILY [facility] Last Admin: 07/31/18 09:03 Dose: 40 mg Multivit/Folic Acid/Iron (Trinatal Rx 1) 1 tab PO DAILYWM [facility] Last Admin: 07/31/18 09:03 Dose: 1 tab Quetiapine Fumarate (Seroquel) 25 mg PO QPM [facility] Last Admin: 07/30/18 21:06 Dose: 25 mg Senna (Senokot) 8.6 mg PO DAILY [facility] Last Admin: 07/31/18 09:03 Dose: 8.6 mg Sodium Chloride (Normal Saline Flush 0.9%) 10 ml IVP PRN PRN PRN Reason: NEEDED PER PROVIDER ORDERS Last Admin: 07/30/18 02:53 Dose: 10 ml Sodium Chloride (Normal Saline Flush 0.9%) 10 ml IVP 0100,0900,1700 [facility] Last Admin: 07/31/18 17:55 Dose: 10 ml Spironolactone (Aldactone) 25 mg PO DAILY [facility] Last Admin: 07/31/18 09:06 Dose: 25 mg Vitamin A/Vitamin D (Vitamin A & D Ointment) 1 applic TOP PRN PRN PRN Reason: Skin Care Last Admin: 07/25/18 20:40 Dose: 1 applic Amlodipine Besylate 5 mg PO DAILY 07/25/18 Lisinopril 20 mg PO DAILY 07/25/18 Pravastatin [Pravachol] 40 mg PO DAILY 07/25/18 Objective - Vital Signs/Intake & Output Reviewed Vital Signs: Yes Vital Signs: Vital Signs x48h Temp Pulse Resp BP Pulse Ox 07/31/18 15:46 36.8 C 82 18 114/73 98 Intake & Output: Intake & Output 1007/29/18 07/30/18 07/31/18 23:59 23:59 23:59 23:59 Intake Total 3477.917 3299.167 1720.833 400 Output Total 50 200 300 Balance 3427.917 3299.167 1520.833 100 - Objective General Appearance: positive: No acute distress, Alert Eyes Bilateral: positive: PERRL Eyes: OU Conjunctivae pale, OU Scleral icterus ENT: positive: Pharynx nml, Oral lesions (related to ongoing dental caries.), Dry mucous membranes Neck: positive: No JVD, Trachea midline, Lymphadenopathy (R), Lymphadenopathy (L), Stiff neck Respiratory: positive: Chest non-tender, No respiratory distress, Other (diminished bilaterally) Cardiovascular: positive: Regular rate & rhythm, Systolic murmur, Decreased pulse(s) Peripheral Pulses: 1+ Radial (R), 1+ Radial (L) Abdomen: positive: Non-tender, Nml bowel sounds, Hepatomegaly, Other (rounded, soft) Back: positive: Nml inspection Skin: positive: No rash, Warm, Dry, Other (bronze colored skin tone) Extremities: positive: Pedal edema, Joint swelling, Other (deformed BLE ankles) Neurologic/Psychiatric: positive: Oriented x3, CN's nml (2-12), Weakness, Sensory loss, Slurred/abnml speech (slugglish speech), Depressed mood/affect, Ot her (baseline tremors) Reflexes: Bicep (R): 2+, Bicep (L): 2+ - Lab Results Fish Bones: 07/31/18 05:25 07/31/18 05:25 Other Labs: Lab Results x24hrs 07/31/18 07/31/18 07/27/18 Range/Units 05:25 05:25 00:30 WBC 7.8 (4.8-10.8) x10^3/uL RBC 3.04 L (4.20-5.40) 10^6/uL Hgb 10.3 L (12.0-16.0) g/dL Hct 30.1 L (37.0-47.0) % MCV 99.0 (81.0-99.0) fL MCH 33.8 H (27.0-31.0) pg MCHC 34.1 (32.0-36.0) g/dL RDW 15.4 H (12.0-15.0) % Plt Count 204 (130-450) 10^3/uL MPV 9.5 (7.9-10.8) fL Neut # (Auto) 4.8 (1.5-6.6) 10^3/uL Lymph # (Auto) 2.1 (1.5-3.5) 10^3/uL [place] # (Auto) 0.8 (0.0-1.0) 10^3/uL Eos # (Auto) 0.2 (0.0-0.7) 10^3/uL Baso # (Auto) 0.0 (0.0-0.1) 10^3/uL Absolute Nucleated RBC 0.01 x10^3/uL Nucleated RBC % 0.1 /100WBC Sodium 141 (135-145) mmol/L Potassium 3.3 L (3.5-5.0) mmol/L Chloride 108 (101-111) mmol/L Carbon Dioxide 24 (21-32) mmol/L Anion Gap 9.0 (6-13) BUN 10 (6-20) mg/dL Creatinine 0.5 (0.4-1.0) mg/dL Estimated GFR (MDRD) 125 (>89) Glucose 81 (70-100) mg/dL POC Whole Bld Glucose 105 H (70 - 100) mg/dL Calcium 8.8 (8.5-10.3) mg/dL Phosphorus 3.9 (2.5-4.6) mg/dL Magnesium 1.5 L (1.7-2.8) mg/dL Total Bilirubin 0.7 (0.2-1.0) mg/dL AST 42 (10-42) IU/L ALT 40 (10-60) IU/L Alkaline Phosphatase 50 (42-121) IU/L Total Protein 5.2 L (6.7-8.2) g/dL Albumin 2.7 L (3.2-5.5) g/dL Globulin 2.5 (2.1-4.2) g/dL Albumin/Globulin Ratio 1.1 (1.0-2.2) 07/26/18 07/26/18 07/26/18 Range/Units 16:40 11:54 08:43 WBC (4.8-10.8) x10^3/uL RBC (4.20-5.40) 10^6/uL Hgb (12.0-16.0) g/dL Hct (37.0-47.0) % MCV (81.0-99.0) fL MCH (27.0-31.0) pg MCHC (32.0-36.0) g/dL RDW (12.0-15.0) % Plt Count (130-450) 10^3/uL MPV (7.9-10.8) fL Neut # (Auto) (1.5-6.6) 10^3/uL Lymph # (Auto) (1.5-3.5) 10^3/uL [place] # (Auto) (0.0-1.0) 10^3/uL Eos # (Auto) (0.0-0.7) 10^3/uL Baso # (Auto) (0.0-0.1) 10^3/uL Absolute Nucleated RBC x10^3/uL Nucleated RBC % /100WBC Sodium (135-145) mmol/L Potassium (3.5-5.0) mmol/L Chloride (101-111) mmol/L Carbon Dioxide (21-32) mmol/L Anion Gap (6-13) BUN (6-20) mg/dL Creatinine (0.4-1.0) mg/dL Estimated GFR (MDRD) (>89) Glucose (70-100) mg/dL POC Whole Bld Glucose 135 H 118 H 123 H (70 - 100) mg/dL Calcium (8.5-10.3) mg/dL Phosphorus (2.5-4.6) mg/dL Magnesium (1.7-2.8) mg/dL Total Bilirubin (0.2-1.0) mg/dL AST (10-42) IU/L ALT (10-60) IU/L Alkaline Phosphatase (42-121) IU/L Total Protein (6.7-8.2) g/dL Albumin (3.2-5.5) g/dL Globulin (2.1-4.2) g/dL Albumin/Globulin Ratio (1.0-2.2) 07/26/18 Range/Units 02:03 WBC (4.8-10.8) x10^3/uL RBC (4.20-5.40) 10^6/uL Hgb (12.0-16.0) g/dL Hct (37.0-47.0) % MCV (81.0-99.0) fL MCH (27.0-31.0) pg MCHC (32.0-36.0) g/dL RDW (12.0-15.0) % Plt Count (130-450) 10^3/uL MPV (7.9-10.8) fL Neut # (Auto) (1.5-6.6) 10^3/uL Lymph # (Auto) (1.5-3.5) 10^3/uL [place] # (Auto) (0.0-1.0) 10^3/uL Eos # (Auto) (0.0-0.7) 10^3/uL Baso # (Auto) (0.0-0.1) 10^3/uL Absolute Nucleated RBC x10^3/uL Nucleated RBC % /100WBC Sodium (135-145) mmol/L Potassium (3.5-5.0) mmol/L Chloride (101-111) mmol/L Carbon Dioxide (21-32) mmol/L Anion Gap (6-13) BUN (6-20) mg/dL Creatinine (0.4-1.0) mg/dL Estimated GFR (MDRD) (>89) Glucose (70-100) mg/dL POC Whole Bld Glucose 98 (70 - 100) mg/dL Calcium (8.5-10.3) mg/dL Phosphorus (2.5-4.6) mg/dL Magnesium (1.7-2.8) mg/dL Total Bilirubin (0.2-1.0) mg/dL AST (10-42) IU/L ALT (10-60) IU/L Alkaline Phosphatase (42-121) IU/L Total Protein (6.7-8.2) g/dL Albumin (3.2-5.5) g/dL Globulin (2.1-4.2) g/dL Albumin/Globulin Ratio (1.0-2.2) ABX Reporting Has patient been on IV antibiotics over the past 48 hours?: No Assessment/Plan - Problem List (1) Dental caries Impression: The patient is found to have very poor oral health. Nursing staff notes that as they were brushing her teeth today, they found that one of her molars was loose. On my exam the patient had nearly all of her molars with noticeable decay and they were discolored with a black, avery or brown appearance. The patient states that her left cheek is the most sore and she has had difficulty with chewing for several months. These did not appear to be causing facial swelling. A call to Dr. Rice, oral and facial surgery was made to get his recommendations on ongoing care and he does not advise antibiotic treatment at this time unless the patient has obvious signs of infection. The patient continues on Chlorhexadine rinse to be used as a swish and spit BID scheduled, indefinitely. The patient states that her teeth feel more comfortable today. Plan: Continue Chlorhexadine BID and monitor for increased pain or signs of infection. (2) Left ankle pain Impression: The patient states that today her legs are very restless, which causes pain to h er left ankle. On my exam, her left ankle is more swollen than her right and she is unable to move it. Both feet seemed deformed and bent inward. She states that she was in so much pain today during her transfer to the chair, in which a geovanny lift was used. She states that she falls at home several times per week, and most times refuses to be transferred to the hospital. She states that she has never fractured any bones from her falls. A 2 view ankle x-ray for BLE ankles showed no fractures and I updated the patient today of these findings. Plan: Continue PT/OT, treat pain, and await placement for further rehab. Qualifiers: Chronicity: unspecified Qualified Code(s): M25.572 - Pain in left ankle and joints of left foot (3) Restless legs Impression: The patient states that she has had this before, but as the patient has become more alert and aware after her alcohol withdrawal, this symptom has become much worse. Plan: Continue scheduled gabapentin TID at a low dose of 100mg, and monitor for improvement. (4) Alcoholic hepatitis Impression: The patient has this disease with elevated LFTs on admission that are nearly resolved. She does not appear jaundice on exam, although has a likely chronic bronze tone. Imaging was not done, but she had a history of heavy alcohol use that has become worse after her work-related back injury in 2009. She states that she can [place] off a whole bottle of whiskey in less than 24 hours and only drinks at night. She states that she wishes to stop drinking and is agreeable to SNF for PT/OT. Plan: continue to monitor daily labs, recommend no further alcohol use. Qualifiers: Ascites presence: without ascites Qualified Code(s): K70.10 - Alcoholic hepatitis without ascites (5) Hypertension Impression: The patient is prescribed 2 agents at home; Norvasc and lisinopril, but she may be non-compliant given her daily alcohol use. She has been having elevated blood pressures while here, so her lisinopril was resumed, with Norvasc. She had an echocardiogram with final results showing pulmonary HTN, and LVH. Plan: Continue to monitor blood pressure, and give oral meds. Qualifiers: Hypertension type: essential hypertension Qualified Code(s): I10 - Essential (primary) hypertension (6) Severe protein-calorie malnutrition Impression: The patient does not have good nutrition due to her chronic daily alcohol use. The patient is thought to be severely malnourished due to not eating for at least 2 weeks, and weight loss of greater than 9% of whole body weight in the past 2 weeks. She is also found to have a reduced nutrition labs, that is ongoing. She has been changed to a soft diet given her extensive dental caries. Plan: Continue to monitor, encourage PO intake, in the chair for meals, and nutrition is following. (7) Rhabdomyolysis Impression: The patient is a known alcoholic, which likely contributed to this acute rhabdomyolysis with an admission CK of 2700, that has improved to 356. She is no longer considered to be in active alcohol withdrawal and is orientated on exam. She is no longer on continuous IV fluids and will likely continue to improve by taking enough oral fluids. Plan: Monitor CK, avoid nephrotoxins. Qualifiers: Rhabdomyolysis type: non-traumatic Qualified Code(s): M62.82 - Rhabdomyolysis
[2018-07-31] MEDS: QUEtiapine 25 MG TABLET PO SCH (20:43)
[2018-08-01] MEDS: ACETAMINOPHEN 325 MG TABLET PO PRN ×2 (01:23→11:47)
[2018-08-01] MEDS: SODIUM CHLORIDE FLUSH 0.9% 10 ML SYRINGE IVP SCH ×2 (01:23→09:06)
[2018-08-01] MEDS: GABAPENTIN 100 MG CAPSULE PO SCH (05:38)
[2018-08-01 06:48] LABS: BASOPHILS % (AUTO) 0.5 %; EOSINOPHILS # (AUTO) 0.2 10^3/uL (0.0-0.7); EOSINOPHILS % (AUTO) 2.3 %; LYMPHOCYTES # (AUTO) 2.3 10^3/uL (1.5-3.5); LYMPHOCYTES % (AUTO) 34.6 %; MEAN CORPUSCULAR HEMOGLOBIN 33.7 pg (27.0-31.0); MEAN PLATELET VOLUME 9.1 fL (7.9-10.8); MONOCYTES # (AUTO) 0.9 10^3/uL (0.0-1.0); NEUTROPHILS # (AUTO) 3.4 10^3/uL (1.5-6.6); NEUTROPHILS % (AUTO) 49.6 %; PLT - PLATELET COUNT 238 10^3/uL (130-450); RED BLOOD COUNT 2.96 10^6/uL (4.20-5.40); RED CELL DISTRIBUTION WIDTH 15.5 % (12.0-15.0); WHITE BLOOD COUNT 6.8 x10^3/uL (4.8-10.8)
[2018-08-01 06:58] LABS: ALBUMIN 2.5 g/dL (3.2-5.5); BILIRUBIN,TOTAL 0.5 mg/dL (0.2-1.0); CALCIUM 8.6 mg/dL (8.5-10.3); CREATININE 0.6 mg/dL (0.4-1.0); TOTAL PROTEIN 5.1 g/dL (6.7-8.2)
[2018-08-01 07:48] VITALS: BP 120/81
--- NOTE | 2018-08-01 07:51 | Discharge Plan ---
"Discharge Plan for SNF / [facility] - Discharge Plan And Transition Orders Disposition: 03 SNF DC/Xfer Condition: Serious Allergies and Adverse Reactions: Allergies Allergy/AdvReac Type Severity Reaction Status Date / Time No Known Drug Allergies Allergy Verified 07/25/18 16:43 - SNF / [facility] Transition Orders Admit to (Facility): [facility] Under the care of (Name): Dr. Bob Discharge Diagnosis: Rhabdomyolysis (M62.82) resolved. Alcoholic hepatitis (K70.10) chronic, stable. Hypertension (I10) chronic, stable. Severe protein-calorie malnutrition (E43) chronic, ongoing. Dental caries (K02.9) chronic, continue Peridex mouth rinse indefinitely. Left ankle pain (M25.572) new on this admit, BLE ankles remain deformed, continue PT. Restless legs (G25.81) chronic, controlled with low dose neurontin. Tobacco dependence (F17.200) chronic, nicotine patch prescribed. Peripheral neuropathy (G62.9) chronic, stable. Pulmonary hypertension (I27.20) new on this admit, continue spironolactone. LVH (left ventricular hypertrophy) (I51.7) new on this admit, continue metoprolol. Weakness (R53.1) ongoing from prolonged alcoholism, stable with PT to continue. Medicare Certification Statement: I certify that [facility] retirement care is medically necessary on a continuing basis for any of the conditions for which she/he is receiving care during hospitalization. Notify PCP of admission and forward orders to primary provider for signature. Weight on admission and: Weekly Other Notification Orders: Call PCP immediately if patient develops dyspnea, chest pain/tightness or edema. House Bowel Program: Yes Additional Bowel Program Orders: If no BM after 2 days, nurse may give M.O.M. 30ml PO PRN and/or ducolax Supp 1 PA and/or RADHA 250mg P.O., and/or senna 1-2 tabs PO. On day 3 nurse may give repeat above order until residents constipation is resolved. Annual Influenza Vaccine (between Jun 06 and January 03): Yes Two-step PPD per [facility] [phone] or approved exception documents: Yes Medication Orders: PLEASE REFER TO THE DISCHARGE MEDICATION LIST. Insulin Orders?: No - Medications New Prescriptions: Chlorhexidine Gluconate 15 ml MM BID #60 mouthwash Gabapentin [Neurontin] 100 mg PO TID #90 capsule Metoprolol Succinate [Toprol Xl] 50 mg PO BIDWM #60 tablet Nicotine 7 mg Patch [Nicoderm] 1 each TOP Q24H #7 patch Pramipexole [Mirapex] 0.25 mg PO TID PRN #25 tablet PRN Reason: Restlessness leg Vitamin [Trinatal Rx 1] 1 tab PO DAILYWM #30 tablet QUEtiapine [SEROquel] 25 mg PO QPM #30 tablet Spironolactone [Aldactone] 25 mg PO DAILY #30 tablet - Diet Type: Geriatric Texture: Regular Liquids: Thin May have monthly special meal: Yes - Therapies | Activity Therapy: Evaluation | Treat if indicated: PT, OT Rehabilitation Potential: Maximize functional status, Return to independent living, Maintain present ADL Functional Activity: No Restrictions Weight Bearing: Full Weight Assistance Devices: Wheelchair, Walker"
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
[2018-08-01] MEDS: LISINOPRIL 20 MG TABLET PO SCH (09:04)
[2018-08-01] MEDS: amLODIPine 5 MG TABLET PO SCH (09:04)
[2018-08-01] MEDS: METOPROLOL SUCCINATE 50 MG TABLET PO SCH (09:04)
[2018-08-01] MEDS: SPIRONOLACTONE 25 MG TABLET PO SCH (09:04)
[2018-08-01] MEDS: PRAVASTATIN 40 MG TABLET PO SCH (09:04)
[2018-08-01] MEDS: SENNA 8.6 MG TABLET PO SCH (09:05)
[2018-08-01] MEDS: FAMOTIDINE 20 MG TABLET PO SCH (09:05)
[2018-08-01] MEDS: MAGNESIUM OXIDE 400 MG TABLET PO SCH (09:05)
[2018-08-01] MEDS: DOCUSATE SODIUM 250 MG CAPSULE PO SCH (09:05)
[2018-08-01] MEDS: PRENATAL VITAMIN TABLET PO SCH (09:05)
[2018-08-01] MEDS: CHLORHEXIDINE GLUCONATE 15 ML UDC PO SCH (09:06)
[2018-08-01] MEDS: POLYETHYLENE GLYCOL 3350 17 GM PACKET PO SCH (09:06)
[2018-08-01] MEDS: NICOTINE 14 MG PATCH TOP SCH (09:07)
[2018-08-01] MEDS: HYDROCORTISONE 1% CREAM 28 GM TUBE TOP SCH (09:08)
[2018-08-01] MEDS: ENOXAPARIN 40 MG/0.4 ML SYRINGE SUBQ SCH (09:08)
== END 2018-08-01 12:25 | DRG 557 ==
LOC: EDUNIT# → ED 16:37 → MS2 18:31
PROVIDERS: ADMIT Nurse Practitioner Gerontology; ATTEND Nurse Practitioner
DX: M62.82 Rhabdomyolysis (principal); E43 Unspecified severe protein-calorie malnutrition; F10.929 Alcohol use, unspecified with intoxication, unspecified; F10.231 Alcohol dependence with withdrawal delirium; K70.10 Alcoholic hepatitis without ascites; S80.01XA Contusion of right knee, initial encounter; W18.30XA Fall on same level, unspecified, initial encounter; I95.1 Orthostatic hypotension; E16.2 Hypoglycemia, unspecified; E86.0 Dehydration; I10 Essential (primary) hypertension; E16.1 Other hypoglycemia; Z87.891 Personal history of nicotine dependence; E78.5 Hyperlipidemia, unspecified; K02.9 Dental caries, unspecified; M25.572 Pain in left ankle and joints of left foot; M25.472 Effusion, left ankle; M25.471 Effusion, right ankle; M21.6X2 Other acquired deformities of left foot; M21.6X1 Other acquired deformities of right foot; G25.81 Restless legs syndrome; G62.9 Polyneuropathy, unspecified; I27.20 Pulmonary hypertension, unspecified; I11.9 Hypertensive heart disease without heart failure; Y90.6 Blood alcohol level of 120-199 mg/100 ml; F17.200 Nicotine dependence, unspecified, uncomplicated; Z78.1 Physical restraint status; Z68.30 Body mass index [BMI] 30.0-30.9, adult; Z91.81 History of falling; Z79.899 Other long term (current) drug therapy; Z74.01 Bed confinement status
CPT/HCPCS: 36415; 71046; 80053; 80306; 80320; 81001; 81003; 82550; 82553; 83690; 83735; 84100; 84484; 85025; 85610; 87086; 93005; 93306; 96361; 96365; 96375; 99284; 99285

== ENCOUNTER 2018-08-04 14:40 | Outpatient (CLI) | payer MEDICARE, MEDICAID ==
[2018-08-04 16:15] LABS: CALCIUM 9.9 mg/dL (8.5-10.3); CREATININE 0.8 mg/dL (0.4-1.0)
[2018-08-04 16:35] LABS: THYROID STIMULATING HORMONE 2.06 uIU/mL (0.34-5.60)
[2018-08-04 16:42] LABS: FERRITIN 732.7 ng/mL (11.0-306.8)
== END 2018-08-04 14:41 | disposition home or self-care (01) ==
LOC: LAB.R 14:40
DX: G99.2 Myelopathy in diseases classified elsewhere (principal); D64.9 Anemia, unspecified
CPT/HCPCS: 80048; 81599; 82607; 82728; 83090; 83921; 84443

== ENCOUNTER 2018-08-25 14:05 | Outpatient (CLI) | payer MEDICARE, MEDICAID ==
[2018-08-25 15:59] LABS: BASOPHILS # (AUTO) 0.1 10^3/uL (0.0-0.1); BASOPHILS % (AUTO) 0.9 %; EOSINOPHILS # (AUTO) 0.1 10^3/uL (0.0-0.7); EOSINOPHILS % (AUTO) 1.4 %; HGB - HEMOGLOBIN 11.9 g/dL (12.0-16.0); LYMPHOCYTES # (AUTO) 3.1 10^3/uL (1.5-3.5); LYMPHOCYTES % (AUTO) 30.1 %; MEAN CORPUSCULAR HEMOGLOBIN 32.7 pg (27.0-31.0); MEAN CORPUSCULAR HGB CONC 33.7 g/dL (32.0-36.0); MEAN PLATELET VOLUME 10.7 fL (7.9-10.8); MONOCYTES # (AUTO) 0.8 10^3/uL (0.0-1.0); NEUTROPHILS # (AUTO) 6.2 10^3/uL (1.5-6.6); NEUTROPHILS % (AUTO) 59.6 %; PLT - PLATELET COUNT 255 10^3/uL (130-450); RED BLOOD COUNT 3.63 10^6/uL (4.20-5.40); RED CELL DISTRIBUTION WIDTH 14.6 % (12.0-15.0); WHITE BLOOD COUNT 10.3 x10^3/uL (4.8-10.8)
[2018-08-25 16:50] LABS: CALCIUM 9.7 mg/dL (8.5-10.3); CREATININE 0.6 mg/dL (0.4-1.0)
== END 2018-08-25 14:06 | disposition home or self-care (01) ==
LOC: LAB.R 14:05
PROVIDERS: ATTEND Family Medicine
DX: I27.20 Pulmonary hypertension, unspecified (principal); D64.9 Anemia, unspecified
CPT/HCPCS: 80048; 85025

== ENCOUNTER 2018-10-12 08:00 | Outpatient (CLI) | payer MEDICARE, OTHER ==
[2018-10-12 20:11] LABS: ALBUMIN 4.2 g/dL (3.2-5.5); ALBUMIN/GLOBULIN RATIO 1.2 (1.0-2.2); BILIRUBIN,TOTAL 0.5 mg/dL (0.2-1.0); CALCIUM 9.6 mg/dL (8.5-10.3); CREATININE 0.7 mg/dL (0.4-1.0); TOTAL PROTEIN 7.6 g/dL (6.7-8.2)
[2018-10-14 12:42] LABS: HEPATITIS C ANTIBODY NON-REACTIVE (NON-REACTIVE)
== END 2018-10-12 23:59 ==
LOC: LAB.N 08:00
PROVIDERS: ATTEND Nurse Practitioner Gerontology
DX: M62.82 Rhabdomyolysis (principal); R74.8 Abnormal levels of other serum enzymes; F10.10 Alcohol abuse, uncomplicated; E53.8 Deficiency of other specified B group vitamins
CPT/HCPCS: 36415; 80053; 82607; 86803

== ENCOUNTER 2018-11-23 08:00 | Outpatient (CLI) | payer MEDICARE ==
[2018-11-23 13:02] LABS: BUN - BLOOD UREA NITROGEN 31 mg/dL (6-20); CALCIUM 9.7 mg/dL (8.5-10.3); CARBON DIOXIDE - CO2 26 mmol/L (21-32); CHLORIDE 104 mmol/L (101-111); CHOLESTEROL 188 mg/dL; CREATININE 0.7 mg/dL (0.4-1.0); GFR - MDRD 85 (>89); GLUCOSE 82 mg/dL (70-100); HDL CHOLESTEROL 62 mg/dL; LDL CHOLESTEROL,CALCULATED 106 mg/dL; LDL/HDL RATIO 1.7 (<4.4); SODIUM 139 mmol/L (135-145); VLDL CHOLESTEROL 20 mg/dL
[2018-11-23 13:48] LABS: BASOPHILS % (AUTO) 0.6 %; EOSINOPHILS # (AUTO) 0.3 10^3/uL (0.0-0.7); EOSINOPHILS % (AUTO) 3.9 %; HGB - HEMOGLOBIN 12.1 g/dL (12.0-16.0); LYMPHOCYTES # (AUTO) 2.5 10^3/uL (1.5-3.5); LYMPHOCYTES % (AUTO) 34.3 %; MEAN CORPUSCULAR HEMOGLOBIN 29.8 pg (27.0-31.0); MEAN CORPUSCULAR HGB CONC 33.2 g/dL (32.0-36.0); MEAN CORPUSCULAR VOLUME 89.6 fL (81.0-99.0); MEAN PLATELET VOLUME 10.1 fL (7.9-10.8); MONOCYTES # (AUTO) 0.6 10^3/uL (0.0-1.0); MONOCYTES % (AUTO) 8.2 %; NEUTROPHILS # (AUTO) 3.9 10^3/uL (1.5-6.6); PLT - PLATELET COUNT 248 10^3/uL (130-450); RED BLOOD COUNT 4.07 10^6/uL (4.20-5.40); RED CELL DISTRIBUTION WIDTH 13.3 % (12.0-15.0); WHITE BLOOD COUNT 7.3 x10^3/uL (4.8-10.8)
== END 2018-11-23 23:59 | disposition home or self-care (01) ==
LOC: LAB.N 08:00
PROVIDERS: ATTEND Internal Medicine Cardiovascular Disease
DX: I10 Essential (primary) hypertension (principal); E78.5 Hyperlipidemia, unspecified
CPT/HCPCS: 36415; 80048; 80061; 83721; 85025

== ENCOUNTER 2018-12-18 10:33 | Outpatient (CLI) | payer MEDICARE, MEDICAID ==
[2018-12-18 13:28] LABS: CREATININE 0.7 mg/dL (0.4-1.0)
[2018-12-18 13:47] LABS: CALCIUM 9.6 mg/dL (8.5-10.3)
== END 2018-12-18 10:34 | disposition home or self-care (01) ==
LOC: LAB.N 10:33
PROVIDERS: ATTEND Nurse Practitioner Gerontology
DX: I12.9 Hypertensive chronic kidney disease with stage 1 through stage 4 chronic kidney disease, or unspecified chronic kidney disease (principal); N18.2 Chronic kidney disease, stage 2 (mild)
CPT/HCPCS: 36415; 80048

== ENCOUNTER 2019-03-02 08:00 | Outpatient (CLI) | payer MEDICARE, MEDICAID ==
[2019-03-02 13:58] LABS: ALBUMIN 4.2 g/dL (3.2-5.5); ALBUMIN/GLOBULIN RATIO 1.1 (1.0-2.2); BILIRUBIN,TOTAL 0.5 mg/dL (0.2-1.0); CALCIUM 9.8 mg/dL (8.5-10.3); CREATININE 0.8 mg/dL (0.4-1.0); TOTAL PROTEIN 8.1 g/dL (6.7-8.2)
== END 2019-03-02 23:59 | disposition home or self-care (01) ==
LOC: LAB.N 08:00
PROVIDERS: ATTEND Nurse Practitioner Gerontology
DX: R74.8 Abnormal levels of other serum enzymes (principal)
CPT/HCPCS: 36415; 80053

== ENCOUNTER 2022-10-28 11:22 | Outpatient (CLI) | payer MEDICARE ==
--- NOTE | 2022-10-29 15:36 | Mammography Report ---
BILATERAL DIGITAL SCREENING MAMMOGRAM 3D/2D: 10/28/2022 CLINICAL: Routine screening. Comparison is made to exam dated: 07/01/2014 mammogram - [facility]. Both breasts are almost entirely fatty (category a/<25% glandular tissue). No significant masses, calcifications, or other findings are seen in either breast. There has been no significant interval change. IMPRESSION: NEGATIVE There is no mammographic evidence of malignancy. A 1 year screening mammogram is recommended. Based on the Tyrer Cuzick model (a risk assessment model) the patients lifetime risk is 3.1% and her 10 year risk is 1.6%. According to the ACR, ACS, and NCCN guidelines, an annual breast MRI exam mary g with mammogram is recommended if the patients lifetime risk is 20% or greater. This exam was interpreted at Station ID: [id number]. NOTE: For mammograms, a report in lay terms will be sent to the patient. Approximately 15% of breast malignancies will not be visualized mammographically. In the management of a palpable breast mass, a negative mammogram must not discourage biopsy of a clinically suspicious lesion. Electronically Signed By: Donavan Canela M.D. aty/estephanierad:10/28/2022 17:36:52 ACR BI-RADS Category 1: Negative 3341F PARENCHYMAL PATTERN: (F) - The breast(s) demonstrate(s) diffuse fatty replacement. BI-RADS CATEGORY: (1) - 1 RECOMMENDATION: (ANNUAL) - Recommend routine annual screening mammography. [id number] 1 year screening LATERALITY: (B)
== END 2022-10-28 11:23 | disposition home or self-care (01) ==
LOC: DI.N 11:22
PROVIDERS: ATTEND Internal Medicine
DX: Z12.31 Encounter for screening mammogram for malignant neoplasm of breast (principal)

== ENCOUNTER 2023-02-04 21:52 | Outpatient (CLI) | payer MEDICARE | END 2023-02-04 21:53 | disposition critical access hospital (66) | LOC: EMS 21:52 | DX: R53.1 Weakness (principal); M79.89 Other specified soft tissue disorders; M79.672 Pain in left foot; M79.671 Pain in right foot; G62.9 Polyneuropathy, unspecified; R73.03 Prediabetes | CPT/HCPCS: A0425; A0429 ==

== ENCOUNTER 2023-02-04 22:20 | Emergency (ER) | payer MEDICARE ==
[2023-02-05] MEDS ORDERED: HYDROmorphone 1 MG/ML CARPUJECT IVP STA (01:01)
[2023-02-05] MEDS ORDERED: HYDROcod/ACETAM 5/325 MG TABLET PO STA (01:19)
[2023-02-05 01:24] VITALS: BP 145/97
--- NOTE | 2023-02-05 01:24 | ED Physician Documentation ---
History of Present Illness - Stated complaint Stated Complaint: BODY ACHES - Chief complaint Chief Complaint: Heent - History obtained from History obtained from: Patient - Additonal information Additional information: The pt comes to the ED via EMS for CC of flare up of her chronic peripheral neuropathy pain. She states she hasn't been able to sleep because it hurts so much. Pt states her sx seem worse lately, but she hasn't been able to see her doctor yet. The pt denies any other sx. No fever, chills, swelling, or injury. PD PAST MEDICAL HISTORY - Past Medical History Cardiovascular: Hypertension, Peripheral Vascular Disease Neuro: Peripheral neuropathy Musculoskeletal: Chronic back pain - Past Surgical History Past Surgical History: Yes /CONCEPTOR: section, Hysterectomy - Present Medications Home Medications: Ambulatory Orders Medication Instructions Recorded Confirmed Amlodipine Besylate 5 mg PO DAILY 07/25/18 07/25/18 Pravastatin [Pravachol] 40 mg PO DAILY 07/25/18 07/25/18 lisinopriL [Lisinopril] 20 mg PO DAILY 07/25/18 07/25/18 Chlorhexidine Gluconate 15 ml MM BID #60 mouthwash 08/01/18 Gabapentin [Neurontin] 100 mg PO TID #90 capsule 08/01/18 Metoprolol Succinate [Toprol Xl] 50 mg PO BIDWM #60 tablet 08/01/18 Nicotine 7 mg Patch [Nicoderm] 1 each TOP Q24H #7 patch 08/01/18 Pramipexole [Mirapex] 0.25 mg PO TID PRN #25 tablet 08/01/18 Vitamin [Trinatal Rx 1] 1 tab PO DAILYWM #30 tablet 08/01/18 QUEtiapine [SEROquel] 25 mg PO QPM #30 tablet 08/01/18 Senna [Senokot] 8.6 mg PO DAILY tablet 08/01/18 Spironolactone [Aldactone] 25 mg PO DAILY #30 tablet 08/01/18 HYDROcod/ACETAM 5/325 [[place] 5/325] 1 - 2 tablet PO Q6H PRN #14 tablet 02/05/23 - Allergies Allergies/Adverse Reactions: Allergies Allergy/AdvReac Type Severity Reaction Status Date / Time No Known Drug Allergies Allergy Verified 02/04/23 22:30 - Social History Does the pt smoke?: No Smoking Status: Former smoker Does the pt drink ETOH?: Yes Does the pt have substance abuse?: No - Immunizations Immunizations are current?: Yes PD ED PE NORMAL - Vitals Vital signs reviewed: Yes - General General: Alert and oriented X 3, No acute distress - HEENT HEENT: Atraumatic, PERRL, EOMI, Moist mucous membranes - Neck Neck: Supple, no meningeal sign - Cardiac Cardiac: RRR, No murmur, Strong equal pulses - Respiratory Respiratory: No respiratory distress, Clear bilaterally - Abdomen Abdomen: Soft, Non tender, Non distended - Derm Derm: Normal color, Warm and dry, No rash - Extremities Extremities: No deformity, No calf tenderness / cord, Other (1+ pitting edema bilateral lower extremities.) - Neuro Neuro: Alert and oriented X 3 - Psych Psych: Normal mood, Normal affect Results - Vitals Vitals: Oxygen O2 Source Room air PD Medical Decision Making - ED course Complexity details: considered differential, d/w patient ED course: The pt was treated symptomatically in the ED, and found to be feeling better. The pain seemed fairly consistent with the pt's prior episodes, and there were no findings to suggest infection or DVT. I will provide a short course of analgesia for at home. The pt is advised to follow up with her PCP for further management of her peripheral neuropathy pain. Departure - Departure Disposition: 01 Home, Self Care Clinical Impression: Peripheral neuropathy Qualifiers: Peripheral neuropathy type: polyneuropathy, unspecified Qualified Code(s): G62.9 - Polyneuropathy, unspecified Condition: Stable Instructions: ED Neuropathy Peripheral Prescriptions: HYDROcod/ACETAM 5/325 [[place] 5/325] 1 - 2 tablet PO Q6H PRN #14 tablet PRN Reason: Pain Comments: A prescription for pain medication has been electronically transmitted to the [facility] pharmacy in [place]. You may pick this up in the morning. Please follow-up with your primary doctor for further concerns regarding control of your neuropathy symptoms. Discharge Date/Time: 02/05/23 01:30
== END 2023-02-05 01:30 | disposition home or self-care (01) ==
LOC: EDUNIT# → ED 22:20
DX: G62.9 Polyneuropathy, unspecified (principal); Z87.891 Personal history of nicotine dependence; I10 Essential (primary) hypertension; I73.9 Peripheral vascular disease, unspecified; Z79.899 Other long term (current) drug therapy
CPT/HCPCS: 99283; A9270

== ENCOUNTER 2023-03-11 07:56 | Outpatient (CLI) | payer MEDICARE ==
--- NOTE | 2023-03-12 10:19 | Ultrasound Report ---
PROCEDURE: Aorta Screening INDICATIONS: FAM HIST OF AAA TECHNIQUE: Real time scanning was performed of the aorta and iliac arteries, with image documentatio n. COMPARISON: None. FINDINGS: Aorta: Proximal aortic diameter measures 2.2 x 2.4 cm. Mid-aorta measures 1.6 x 1.8 cm. Distal aor tic diameter is 1.5 x 1.7 cm. Noncalcified atherosclerotic plaque at the mid to distal aorta. Iliac arteries: Right common iliac artery measures 0.9 x 1.2 cm. Left common iliac artery measures 1.1 x 1.3 cm. IMPRESSION: No abdominal aortic aneurysm. Reviewed by: Carl Mcneal MD on 03/12/2023 10:18 AM PDT Approved by: Carl Mcneal MD on 03/12/2023 10:18 AM PDT Station ID: [id number]
== END 2023-03-11 07:57 | disposition home or self-care (01) ==
LOC: DI 07:56
PROVIDERS: ATTEND Internal Medicine
DX: Z13.6 Encounter for screening for cardiovascular disorders (principal); Z82.49 Family history of ischemic heart disease and other diseases of the circulatory system

== ENCOUNTER 2023-03-26 11:21 | Outpatient (CLI) | payer MEDICARE, MEDICAID, OTHER | END 2023-03-26 23:59 | disposition critical access hospital (66) | LOC: EMS 11:21 | DX: M79.632 Pain in left forearm (principal); M79.89 Other specified soft tissue disorders; Y09 Assault by unspecified means | CPT/HCPCS: A0425; A0429 ==

== ENCOUNTER 2023-03-26 11:50 | Emergency (ER) | payer MEDICARE, MEDICAID, OTHER ==
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
--- NOTE | 2023-03-26 13:27 | XRAY Report ---
PROCEDURE: Forearm LT INDICATIONS: pain, injury TECHNIQUE: 2 views of the forearm were acquired. COMPARISON: None FINDINGS: Bones: No fractures or dislocations. No suspicious bony lesions. Moderate radiocarpal, ulnocarpal, and first carpometacarpal osteoarthritis Soft tissues: No suspicious soft tissue calcifications or masses. IMPRESSION: Arthritic changes without fracture or subluxation Reviewed by: Sean Feliciano MD on 03/26/2023 12:25 PM AKDT Approved by: Sean Feliciano MD on 03/26/2023 12:25 PM AKDT Station ID: [id number]
[2023-03-26 14:21] VITALS: BP 132/74
== END 2023-03-26 14:17 | disposition home or self-care (01) ==
LOC: EDUNIT# → ED 11:50
DX: S56.912A Strain of unspecified muscles, fascia and tendons at forearm level, left arm, initial encounter (principal); X58.XXXA Exposure to other specified factors, initial encounter; I10 Essential (primary) hypertension; Q05.9 Spina bifida, unspecified; Z99.3 Dependence on wheelchair; Z87.891 Personal history of nicotine dependence
CPT/HCPCS: 99283

== ENCOUNTER 2023-05-02 11:26 | Day surgery (SDC) | payer MEDICARE, MEDICAID ==
[2023-05-02] MEDS ORDERED: LACTATED RINGERS 1,000 ML IV ONE ×2 (11:58→13:56)
--- NOTE | 2023-05-02 12:36 | ANESTHESIA ---
Pre-Anesthesia VS, & Labs - Diagnosis + FIT - Procedure colonoscopy Vital Signs: Temp Pulse Resp BP Pulse Ox O2 Flow Rate 36.5 C 82 16 143/88 H 97 0 05/02/23 11:59 05/02/23 11:59 05/02/23 11:59 05/02/23 11:59 05/02/23 11:59 05/02/23 11:59 Height: 5 ft 2 in Weight (kg): 83.91 kg Body Mass Index: 33.8 BMI Classification: Obese - NPO >8 hours - Is Patient ?: No - Lab Results Lab results reviewed: Yes Home Medications and Allergies Home Medications: Ambulatory Orders DULoxetine [Cymbalta] 30 mg PO DAILY 04/25/23 Metoprolol Tartrate [Lopressor] 25 mg PO BID 04/25/23 Topiramate [Topamax] 25 mg PO BID 04/25/23 Pravastatin [Pravachol] 40 mg PO DAILY 07/25/18 DULoxetine [Cymbalta] 30 mg PO DAILY 04/25/23 Metoprolol Tartrate [Lopressor] 25 mg PO BID 04/25/23 Topiramate [Topamax] 25 mg PO BID 04/25/23 Allergies/Adverse Reactions: Allergies Allergy/AdvReac Type Severity Reaction Status Date / Time No Known Drug Allergies Allergy Verified 03/26/23 11:55 Anes History & Medical History - Anesthetic History Anesthesia Complications: reports: No previous complications Family history of Anesthesia Complications: Denies Family history of Malignant Hyperthermia: Denies - Medical History Cardiovascular: reports: Hypertension, High cholesterol, Peripheral Vascular Disease Pulmonary: reports: None Gastrointestinal: reports: None Urinary: reports: None Neuro: reports: Parkinson's (being worked up for parkinson's?), Peripheral neuropathy Musculoskeletal: reports: None Endocrine/Autoimmune: reports: None Skin: reports: None Smoking Status: Current every day smoker Psychosocial: reports: Cannabis - Surgical History General: reports: Appendectomy Eyes Ears Nose Throat (EENT): reports: Tonsil/Adenoidectomy Gynecologic: reports: section, Hysterectomy Exam General: Alert, Oriented x3, Cooperative Dental: Loose/Frag (remaining lower central incisors very loose), Poor dentition Mouth Openin Fingerbreadth Neck Mobility: Normal Mallampati classification: II Respiratory: Lungs clear Cardiovascular: Regular rate Plan Anesthesia Type: General, MAC Consent for Procedure(s) Verified and Reviewed: Yes Code Status: Attempt Resuscitation ASA classification: 3-Severe systemic disease Is this case an emergency?: No
[2023-05-02] MEDS ORDERED: PROPOFOL 500 MG/50 ML 500 MG/50 ML VIAL ONE ×2 (12:48)
[2023-05-02 14:23] VITALS: BP 132/88
--- NOTE | 2023-05-02 14:49 | ANESTHESIA POST OP EVALUATION ---
Anesthesia Post Eval - Post Anesthesia Eval Vitals: Last Vital Signs Temp 36.0 C L 05/02/23 14:28 Pulse 78 05/02/23 14:28 Resp 16 05/02/23 14:28 BP 132/88 H 05/02/23 14:28 Pulse Ox 100 05/02/23 14:28 O2 Flow Rate 0 05/02/23 11:59 CV Function Including HR & BP: Stable Pain Control: Satisfactory Nausea & Vomiting: Negative Mental Status: Baseline Respiratory Status: Airway Patent Hydration Status: Satisfactory Anesthesia Complications: None
== END 2023-05-02 11:27 | disposition home or self-care (01) ==
LOC: SDS 11:26
PROVIDERS: ATTEND Surgery
DX: Z12.11 Encounter for screening for malignant neoplasm of colon (principal); R19.5 Other fecal abnormalities; E66.9 Obesity, unspecified; Z68.33 Body mass index [BMI] 33.0-33.9, adult; F17.200 Nicotine dependence, unspecified, uncomplicated
CPT/HCPCS: G0121; J7120

== ENCOUNTER 2023-06-19 19:17 | Outpatient (CLI) | payer MEDICARE, MEDICAID | END 2023-06-19 23:59 | disposition critical access hospital (66) | LOC: EMS 19:17 | DX: R53.1 Weakness (principal); R23.8 Other skin changes; G62.9 Polyneuropathy, unspecified; R26.0 Ataxic gait; Z74.09 Other reduced mobility | CPT/HCPCS: A0425; A0429 ==

== ENCOUNTER 2023-06-19 19:48 | Emergency (ER) | payer MEDICARE, MEDICAID ==
--- NOTE | 2023-06-19 19:58 | ED Physician Documentation ---
History of Present Illness - Stated complaint Stated Complaint: TOE PX - History obtained from History obtained from: Patient, EMS - Additonal information Additional information: 68-year-old woman presents by ambulance for the evaluation of "black toes." Intermittently reportedly she has been getting black toes. She has a history of neuropathy in her feet without a formal diagnosis of diabetes. She is a poor historian but per the chart has a history of tobacco use, hypertension, h hyper lipidemia, obesity, alcoholism. Although there is no clear diagnosis of Parkinson's, I do note that I see a reference to an allergy to carbidopa levodopa. PD PAST MEDICAL HISTORY - Past Medical History Cardiovascular: Hypertension, High cholesterol, Peripheral Vascular Disease Respiratory: None Neuro: Parkinson's (being worked up for parkinson's?), Peripheral neuropathy Endocrine/Autoimmune: None GI: None : None HEENT: Chronic vision loss Psych: None Musculoskeletal: None Derm: None - Past Surgical History Past Surgical History: Yes General: Appendectomy /PHARMACEUTICAL SCIENTIST: section, Hysterectomy HEENT: Tonsil/Adenoidectomy - Present Medications Home Medications: Ambulatory Orders Medication Instructions Recorded Confirmed Pravastatin [Pravachol] 40 mg PO DAILY 07/25/18 05/02/23 Spironolactone [Aldactone] 25 mg PO DAILY #30 tablet 08/01/18 05/02/23 DULoxetine [Cymbalta] 30 mg PO DAILY 04/25/23 05/02/23 Metoprolol Tartrate [Lopressor] 25 mg PO BID 04/25/23 05/02/23 Topiramate [Topamax] 25 mg PO BID 04/25/23 05/02/23 - Allergies Allergies/Adverse Reactions: Allergies Allergy/AdvReac Type Severity Reaction Status Date / Time No Known Drug Allergies Allergy Verified 06/19/23 19:56 - Social History Does the pt smoke?: No Smoking Status: Current every day smoker Does the pt drink ETOH?: Yes Does the pt have substance abuse?: No - Immunizations Immunizations are current?: Yes PD ED PE NORMAL - Vitals Vital signs reviewed: Yes - General General: No acute distress, Other (Slow answers) - Extremities Extremities: Other (Both feet are warm and well-perfused with good cap refill and normal pedal pulses. She has onychial mycosis of several toes but there is no area of gangrene or discoloration.) Results - Vitals Vitals: Oxygen O2 Source Room air PD Medical Decision Making - ED course ED course: She came in with a chief complaints of black toes that are intermittent. She has no evidence of vascular insufficiency in the feet and there is no evidence of infection at this time. She probably does need to see a senior packaging engineer, her nails need trimmed and she has onychia mycosis. Departure - Departure Disposition: Home, Self Care Clinical Impression: Overgrown toenails Condition: Good Record reviewed to determine appropriate education?: Yes Follow-Up: Ghislaine Pearce DPM [Provider Admit Priv/Credential] - Comments: Regarding the toenails there is no evidence of a vascular issue at this point. It is very reasonable for you to follow-up with a senior packaging engineer and 1 is listed on this form to address your toenail issue. Call your doctor to arrange a follow-up appointment, make the next available appointment. In the interim, return anytime if worse or if new symptoms develop.
[2023-06-19 20:05] VITALS: BP 138/90; O2SAT 96
== END 2023-06-19 20:24 | disposition home or self-care (01) ==
LOC: EDUNIT# → ED 19:48
DX: L60.2 Onychogryphosis (principal); I10 Essential (primary) hypertension; Z72.0 Tobacco use
CPT/HCPCS: 99283

== ENCOUNTER 2023-07-07 11:47 | Outpatient (CLI) | payer MEDICARE, MEDICAID ==
[2023-07-07 11:54] LABS: BASOPHILS # (AUTO) 0.1 10^3/uL (0.0-0.1); BASOPHILS % (AUTO) 0.6 %; EOSINOPHILS # (AUTO) 0.1 10^3/uL (0.0-0.7); EOSINOPHILS % (AUTO) 0.6 %; HCT - HEMATOCRIT 38.8 % (37.0-47.0); HGB - HEMOGLOBIN 12.7 g/dL (12.0-16.0); LYMPHOCYTES % (AUTO) 34.2 %; MEAN CORPUSCULAR HEMOGLOBIN 28.7 pg (27.0-31.0); MEAN CORPUSCULAR HGB CONC 32.7 g/dL (32.0-36.0); MEAN CORPUSCULAR VOLUME 87.6 fL (81.0-99.0); MEAN PLATELET VOLUME 11.3 fL (7.9-10.8); MONOCYTES # (AUTO) 0.6 10^3/uL (0.0-1.0); MONOCYTES % (AUTO) 6.7 %; NEUTROPHILS # (AUTO) 5.1 10^3/uL (1.5-6.6); NEUTROPHILS % (AUTO) 57.8 %; PLT - PLATELET COUNT 291 10^3/uL (130-450); RED BLOOD COUNT 4.43 10^6/uL (4.20-5.40); RED CELL DISTRIBUTION WIDTH 15.6 % (12.0-15.0); WHITE BLOOD COUNT 8.8 x10^3/uL (4.8-10.8)
[2023-07-07 12:25] LABS: ALBUMIN 4.5 g/dL (3.2-5.5); ALBUMIN/GLOBULIN RATIO 1.4 (1.0-2.2); BILIRUBIN,TOTAL 0.4 mg/dL (0.2-1.0); CALCIUM 10.1 mg/dL (8.5-10.3); CREATININE 0.8 mg/dL (0.6-1.3); POTASSIUM 4.2 mmol/L (3.5-4.5); TOTAL PROTEIN 7.8 g/dL (6.4-8.9)
== END 2023-07-07 11:48 | disposition home or self-care (01) ==
LOC: LAB.R 11:47
PROVIDERS: ATTEND Registered Nurse
DX: I10 Essential (primary) hypertension (principal); I73.9 Peripheral vascular disease, unspecified; R60.1 Generalized edema
CPT/HCPCS: 80053; 85025

== ENCOUNTER 2023-08-05 13:53 | Outpatient (CLI) | payer MEDICARE, MEDICAID ==
[2023-08-05 14:13] LABS: BASOPHILS # (AUTO) 0.1 10^3/uL (0.0-0.1); BASOPHILS % (AUTO) 0.7 %; EOSINOPHILS # (AUTO) 0.1 10^3/uL (0.0-0.7); EOSINOPHILS % (AUTO) 1.2 %; HCT - HEMATOCRIT 39.7 % (37.0-47.0); HGB - HEMOGLOBIN 12.8 g/dL (12.0-16.0); LYMPHOCYTES # (AUTO) 3.6 10^3/uL (1.5-3.5); LYMPHOCYTES % (AUTO) 36.1 %; MEAN CORPUSCULAR HEMOGLOBIN 28.2 pg (27.0-31.0); MEAN CORPUSCULAR HGB CONC 32.2 g/dL (32.0-36.0); MEAN CORPUSCULAR VOLUME 87.4 fL (81.0-99.0); MEAN PLATELET VOLUME 12.1 fL (7.9-10.8); MONOCYTES # (AUTO) 0.7 10^3/uL (0.0-1.0); MONOCYTES % (AUTO) 6.9 %; NEUTROPHILS # (AUTO) 5.5 10^3/uL (1.5-6.6); PLT - PLATELET COUNT 243 10^3/uL (130-450); RED BLOOD COUNT 4.54 10^6/uL (4.20-5.40); RED CELL DISTRIBUTION WIDTH 14.6 % (12.0-15.0); WHITE BLOOD COUNT 9.9 x10^3/uL (4.8-10.8)
== END 2023-08-05 13:54 | disposition home or self-care (01) ==
LOC: LAB.R 13:53
PROVIDERS: ATTEND Registered Nurse
DX: D64.9 Anemia, unspecified (principal); N17.9 Acute kidney failure, unspecified
CPT/HCPCS: 80053; 83540; 85025

== ENCOUNTER 2023-08-27 14:41 | Outpatient (CLI) | payer MEDICARE, MEDICAID ==
[2023-08-27 15:19] LABS: ESTIMATED AVERAGE GLUCOSE 120 mg/dL (70-100); HEMOGLOBIN A1c% 5.8 % (4.27-6.07)
[2023-08-27 15:28] LABS: CALCIUM 9.8 mg/dL (8.5-10.3); CREATININE 0.8 mg/dL (0.6-1.3); POTASSIUM 4.1 mmol/L (3.5-4.5)
[2023-08-27 15:41] LABS: THYROID STIMULATING HORMONE 1.02 uIU/mL (0.34-5.60)
== END 2023-08-27 14:42 | disposition home or self-care (01) ==
LOC: LAB.R 14:41
PROVIDERS: ATTEND Registered Nurse
DX: G60.3 Idiopathic progressive neuropathy (principal); R73.03 Prediabetes; E03.9 Hypothyroidism, unspecified; R60.1 Generalized edema; I73.9 Peripheral vascular disease, unspecified
CPT/HCPCS: 80048; 80201; 81599; 83036; 84443

== ENCOUNTER 2023-09-09 15:26 | Outpatient (CLI) | payer MEDICARE, MEDICAID ==
[2023-09-09 15:34] LABS: BILIRUBIN,URINE NEGATIVE (NEGATIVE); GLUCOSE, URINE (UA) NEGATIVE (NEGATIVE); KETONES,URINE (UA) NEGATIVE (NEGATIVE); LEUKOCYTE ESTERASE, URINE NEGATIVE (NEGATIVE); NITRITE,URINE NEGATIVE (NEGATIVE); OCCULT BLOOD,URINE NEGATIVE (NEGATIVE); PROTEIN,URINE NEGATIVE (NEGATIVE); UROBILINOGEN,URINE 0.2 (NORMAL) E.U./dL (NORMAL)
[2023-09-09 15:39] LABS: CLARITY,URINE CLEAR (CLEAR)
[2023-09-09 15:46] LABS: BACTERIA,URINE Rare /HPF (None Seen); RBC,URINE 0-5 /HPF (0-5); SQUAMOUS EPITHELIAL CELL,UR FEW Squamous (<= Few); WBC,URINE 0-3 /HPF (0-5)
[2023-09-09 15:49] LABS: ALBUMIN 4.1 g/dL (3.2-5.5); ALBUMIN/GLOBULIN RATIO 1.5 (1.0-2.2); BILIRUBIN,TOTAL 0.4 mg/dL (0.2-1.0); CALCIUM 9.9 mg/dL (8.5-10.3); CREATININE 0.9 mg/dL (0.6-1.3); POTASSIUM 3.9 mmol/L (3.5-4.5); TOTAL PROTEIN 6.8 g/dL (6.4-8.9)
== END 2023-09-09 15:27 | disposition home or self-care (01) ==
LOC: LAB.R 15:26
PROVIDERS: ATTEND Registered Nurse
DX: I10 Essential (primary) hypertension (principal); R44.3 Hallucinations, unspecified
CPT/HCPCS: 80053; 81001; 85025; 87086

== ENCOUNTER 2023-09-10 13:57 | Outpatient (CLI) | payer MEDICARE, MEDICAID ==
[2023-09-10 14:03] LABS: BASOPHILS # (AUTO) 0.1 10^3/uL (0.0-0.1); BASOPHILS % (AUTO) 0.5 %; EOSINOPHILS # (AUTO) 0.1 10^3/uL (0.0-0.7); EOSINOPHILS % (AUTO) 1.3 %; HCT - HEMATOCRIT 41.3 % (37.0-47.0); HGB - HEMOGLOBIN 13.3 g/dL (12.0-16.0); LYMPHOCYTES # (AUTO) 3.4 10^3/uL (1.5-3.5); LYMPHOCYTES % (AUTO) 35.6 %; MEAN CORPUSCULAR HEMOGLOBIN 28.5 pg (27.0-31.0); MEAN CORPUSCULAR HGB CONC 32.2 g/dL (32.0-36.0); MEAN CORPUSCULAR VOLUME 88.6 fL (81.0-99.0); MEAN PLATELET VOLUME 10.9 fL (7.9-10.8); MONOCYTES # (AUTO) 0.6 10^3/uL (0.0-1.0); MONOCYTES % (AUTO) 6.3 %; NEUTROPHILS # (AUTO) 5.3 10^3/uL (1.5-6.6); NEUTROPHILS % (AUTO) 56.2 %; PLT - PLATELET COUNT 306 10^3/uL (130-450); RED BLOOD COUNT 4.66 10^6/uL (4.20-5.40); RED CELL DISTRIBUTION WIDTH 13.5 % (12.0-15.0); WHITE BLOOD COUNT 9.5 x10^3/uL (4.8-10.8)
== END 2023-09-10 13:58 | disposition home or self-care (01) ==
LOC: LAB.R 13:57
DX: I10 Essential (primary) hypertension (principal); R44.3 Hallucinations, unspecified; I73.9 Peripheral vascular disease, unspecified
CPT/HCPCS: 85025

== ENCOUNTER 2023-09-24 14:48 | Outpatient (CLI) | payer MEDICARE, MEDICAID | END 2023-09-24 14:49 | disposition home or self-care (01) | LOC: LAB.R 14:48 | DX: Z51.81 Encounter for therapeutic drug level monitoring (principal); Z79.899 Other long term (current) drug therapy | CPT/HCPCS: 80201; 81599 ==

== ENCOUNTER 2023-10-26 08:00 | Outpatient (CLI) | payer MEDICARE, MEDICAID ==
[2023-10-26 20:11] LABS: CALCIUM 9.7 mg/dL (8.5-10.3); CREATININE 0.9 mg/dL (0.6-1.3); POTASSIUM 3.6 mmol/L (3.5-4.5)
== END 2023-10-26 23:59 | disposition home or self-care (01) ==
LOC: LAB.R 08:00
PROVIDERS: ATTEND Registered Nurse
DX: R73.03 Prediabetes (principal); G40.909 Epilepsy, unspecified, not intractable, without status epilepticus
CPT/HCPCS: 36415; 80048; 80201; 81599

== ENCOUNTER 2023-10-31 07:06 | Outpatient (CLI) | payer MEDICARE, MEDICAID ==
[2023-10-31 07:50] LABS: THYROID STIMULATING HORMONE 1.59 uIU/mL (0.34-5.60)
[2023-10-31 10:06] LABS: ESTIMATED AVERAGE GLUCOSE 123 mg/dL (70-100); HEMOGLOBIN A1c% 5.9 % (4.27-6.07)
[2023-11-01 22:06] LABS: TREPONEMA PALLIDUM ANTIBODIES Non Reactive (Non Reactive)
[2023-11-02 21:07] LABS: COPPER SERUM OR PLASMA 120 ug/dL (80-158)
[2023-11-03 13:10] LABS: A/G RATIO 1.1 (0.7-1.7); ALBUMIN 3.3 g/dL (2.9-4.4); ALPHA-1-GLOBULIN 0.2 g/dL (0.0-0.4); ALPHA-2-GLOBULIN 0.8 g/dL (0.4-1.0); BETA GLOBULIN 0.8 g/dL (0.7-1.3); GLOBULIN, TOTAL 2.9 g/dL (2.2-3.9); PROTEIN TOTAL 6.2 g/dL (6.0-8.5)
[2023-11-04 01:09] LABS: METHYLMALONIC ACID SERUM 298 nmol/L (0-378)
[2023-11-26 19:30] LABS: CALCIUM 9.7 mg/dL (8.5-10.3); CREATININE 0.9 mg/dL (0.6-1.3)
== END 2023-10-31 07:07 | disposition home or self-care (01) ==
LOC: LAB.R 07:06
PROVIDERS: ATTEND Registered Nurse
DX: N18.9 Chronic kidney disease, unspecified (principal)
CPT/HCPCS: 80048; 82525; 82607; 82746; 83036; 83921; 84155; 84165; 84425; 84443; 86780

== ENCOUNTER 2023-11-26 08:00 | Outpatient (CLI) | payer MEDICARE, MEDICAID ==
[2023-11-26 19:14] LABS: CALCIUM 9.7 mg/dL (8.5-10.3); CREATININE 0.8 mg/dL (0.6-1.3)
== END 2023-11-26 23:59 | disposition home or self-care (01) ==
LOC: LAB.R 08:00
PROVIDERS: ATTEND Registered Nurse
DX: G40.909 Epilepsy, unspecified, not intractable, without status epilepticus (principal)
CPT/HCPCS: 80048

== ENCOUNTER 2023-12-26 11:27 | Outpatient (CLI) | payer MEDICARE, MEDICAID ==
[2023-12-26 12:04] LABS: CREATININE 0.8 mg/dL (0.6-1.3)
== END 2023-12-26 11:28 | disposition home or self-care (01) ==
LOC: LAB.R 11:27
PROVIDERS: ATTEND Registered Nurse
DX: I10 Essential (primary) hypertension (principal); G20.A1 Parkinson's disease without dyskinesia, without mention of fluctuations; G40.909 Epilepsy, unspecified, not intractable, without status epilepticus
CPT/HCPCS: 80048; 81599

== ENCOUNTER 2024-01-29 15:40 | Outpatient (CLI) | payer MEDICARE, MEDICAID ==
[2024-01-29 15:47] LABS: BASOPHILS # (AUTO) 0.1 10^3/uL (0.0-0.1); BASOPHILS % (AUTO) 0.6 %; EOSINOPHILS # (AUTO) 0.2 10^3/uL (0.0-0.7); EOSINOPHILS % (AUTO) 2.2 %; HCT - HEMATOCRIT 40.2 % (37.0-47.0); LYMPHOCYTES # (AUTO) 3.8 10^3/uL (1.5-3.5); LYMPHOCYTES % (AUTO) 42.4 %; MEAN CORPUSCULAR HEMOGLOBIN 27.7 pg (27.0-31.0); MEAN CORPUSCULAR HGB CONC 32.3 g/dL (32.0-36.0); MEAN CORPUSCULAR VOLUME 85.5 fL (81.0-99.0); MONOCYTES # (AUTO) 0.6 10^3/uL (0.0-1.0); NEUTROPHILS # (AUTO) 4.3 10^3/uL (1.5-6.6); NEUTROPHILS % (AUTO) 47.6 %; PLT - PLATELET COUNT 263 10^3/uL (130-450); RED CELL DISTRIBUTION WIDTH 13.1 % (12.0-15.0); WHITE BLOOD COUNT 9.1 x10^3/uL (4.8-10.8)
[2024-01-29 15:49] LABS: BILIRUBIN,URINE NEGATIVE (NEGATIVE); CLARITY,URINE CLEAR (CLEAR); GLUCOSE, URINE (UA) NEGATIVE (NEGATIVE); KETONES,URINE (UA) NEGATIVE (NEGATIVE); LEUKOCYTE ESTERASE, URINE NEGATIVE (NEGATIVE); NITRITE,URINE NEGATIVE (NEGATIVE); OCCULT BLOOD,URINE NEGATIVE (NEGATIVE); PROTEIN,URINE NEGATIVE (NEGATIVE); UROBILINOGEN,URINE 0.2 (NORMAL) E.U./dL (NORMAL)
[2024-01-29 16:05] LABS: ALBUMIN/GLOBULIN RATIO 1.4 (1.0-2.2); BILIRUBIN,TOTAL 0.3 mg/dL (0.2-1.0); CALCIUM 9.7 mg/dL (8.5-10.3); CREATININE 0.8 mg/dL (0.6-1.3); POTASSIUM 3.9 mmol/L (3.5-4.5); TOTAL PROTEIN 6.8 g/dL (6.4-8.9)
== END 2024-01-29 15:41 | disposition home or self-care (01) ==
LOC: LAB 15:40 → LAB.R 15:41
PROVIDERS: ATTEND Registered Nurse
DX: G20.A1 Parkinson's disease without dyskinesia, without mention of fluctuations (principal); I73.9 Peripheral vascular disease, unspecified; I10 Essential (primary) hypertension; R39.81 Functional urinary incontinence; G60.3 Idiopathic progressive neuropathy; G40.909 Epilepsy, unspecified, not intractable, without status epilepticus
CPT/HCPCS: 80053; 81001; 81003; 85025; 87086

== ENCOUNTER 2024-02-24 15:13 | Outpatient (CLI) | payer MEDICARE, MEDICAID ==
[2024-02-24 16:03] LABS: THYROID STIMULATING HORMONE 1.7 uIU/mL (0.34-5.60)
[2024-02-24 16:22] LABS: CALCIUM 10.1 mg/dL (8.5-10.3); CREATININE 0.8 mg/dL (0.6-1.3); POTASSIUM 3.9 mmol/L (3.5-4.5)
[2024-02-24 21:16] LABS: ESTIMATED AVERAGE GLUCOSE 120 mg/dL (70-100); HEMOGLOBIN A1c% 5.8 % (4.27-6.07)
== END 2024-02-24 15:14 | disposition home or self-care (01) ==
LOC: LAB.R 15:13
PROVIDERS: ATTEND Registered Nurse
DX: I10 Essential (primary) hypertension (principal); E03.9 Hypothyroidism, unspecified; E11.9 Type 2 diabetes mellitus without complications; G40.909 Epilepsy, unspecified, not intractable, without status epilepticus
CPT/HCPCS: 80048; 81599; 83036; 84439; 84443

== ENCOUNTER 2024-02-25 08:00 | Outpatient (CLI) | payer MEDICARE, MEDICAID | END 2024-02-25 23:59 | disposition home or self-care (01) | LOC: LAB.R 08:00 | PROVIDERS: ATTEND Registered Nurse | DX: Z51.81 Encounter for therapeutic drug level monitoring (principal); T46.2X Poisoning by, adverse effect of and underdosing of other antidysrhythmic drugs | CPT/HCPCS: 80201; 81599 ==

== ENCOUNTER 2024-03-19 11:38 | Outpatient (CLI) | payer MEDICARE, MEDICAID ==
[2024-03-19 12:04] LABS: CREATININE 0.8 mg/dL (0.6-1.3)
[2024-03-19] MEDS ORDERED: GADOTERATE MEGLUMINE 10 MMOL/20 ML VIAL ONE (12:57)
[2024-03-19] MEDS: GADOTERATE MEGLUMINE 10 MMOL/20 ML VIAL IVP ONE (15:02)
--- NOTE | 2024-03-25 17:52 | MRI Report ---
PROCEDURE: MRI brain with and without contrast INDICATIONS: BILATERAL LEG WEAKNESS, ABN CERVICAL MRI TECHNIQUE: Multiplanar multisequential MR images of the brain were obtained before and after intrave nous contrast administration. COMPARISON: Prior report from CT head 06/07/2012. Images unavailable. FINDINGS: CSF spaces: Basal cisterns are patent. No extra-axial fluid collections. Ventricles are normal in size and shape. Brain: No midline shift. No intracranial bleeds or masses. No abnormal intracranial enhancement. The brainstem appears normal. Diffusion-weighted images demonstrate no acute infarct. Normal intrav ascular flow voids are present. Solitary 5 mm left frontal subcortical white matter hyperintensity. White matter otherwise unremarkab le throughout the exam Skull and face: Calvarial marrow is normal in signal. Orbits and optic nerves appear normal. Sinuses: Sinuses and mastoids appear clear. IMPRESSION: Solitary nonspecific left frontal white matter hyperintensity probably reflects early chronic ischemi c change. Otherwise unremarkable MRI of the brain with and without contrast Reviewed by: Sean Feliciano MD on 03/25/2024 4:51 PM HARMEET Approved by: Sean Feliciano MD on 03/25/2024 4:51 PM HARMEET Station ID: [id number]
--- NOTE | 2024-03-25 18:04 | MRI Report ---
PROCEDURE: Cervical Spine W/WO INDICATIONS: BILATERAL LEG WEAKNESS, ABN CERVICAL MRI CONTRAST: CLARISCAN 16.4 ML TECHNIQUE: Noncontrast sagittal T1 spin echo and T2 fast spin echo, sagittal STIR, sagittal PD fast spin echo, f oraminal oblique sagittal T2 fast spin echo, axial gradient echo or T2 fast spin echo through the cer vical spine. After the administration of contrast, sagittal and axial T1 spin echo with fat saturati on through the cervical spine. COMPARISON: No prior exams are available after multiple attempts FINDINGS: Image quality: Excellent. Alignment and curvature: There is normal bony alignment. Marrow: Marrow demonstrates normal overall signal. Spinal cord: There is increased focal signal in the dorsal aspect of the cervical cord measuring 2 mm in diameter extending from the C3 through C5-6 level. There is also a small focus of enhancement upp er portion of the abnormal signal. No cord atrophy or expansion. No cerebellar tonsillar herniation. Paraspinous soft tissues: No paravertebral masses or suspicious enhancement. Disc levels: Degenerative disc disease in the mid cervical spine without significant central or fora ziyad stenosis. IMPRESSION: Linear abnormal signal in the dorsal mid cervical cord associated with focal enhancement. Differentia l would include demyelinating disease with focal active demyelination Reviewed by: Sean Feliciano MD on 03/25/2024 5:03 PM HARMEET Approved by: Sean Feliciano MD on 03/25/2024 5:03 PM AKBELLA Station ID: [id number]
== END 2024-03-19 11:39 | disposition home or self-care (01) ==
LOC: LAB 11:38
PROVIDERS: ATTEND Psychiatry & Neurology Neurology
DX: R53.1 Weakness (principal); R93.7 Abnormal findings on diagnostic imaging of other parts of musculoskeletal system; Z13.89 Encounter for screening for other disorder; G25.2 Other specified forms of tremor; R29.818 Other symptoms and signs involving the nervous system; R29.898 Other symptoms and signs involving the musculoskeletal system
CPT/HCPCS: 36415; 70553; 72156; 82565; A9575

== ENCOUNTER 2024-03-26 12:33 | Outpatient (CLI) | payer MEDICARE, MEDICAID ==
[~2024-03-26 12:33] MED LIST: GADOTERATE MEGLUMINE 7.5 MMOL/15 ML VIAL ONE
[2024-03-26] MEDS: GADOTERATE MEGLUMINE 7.5 MMOL/15 ML VIAL IVP ONE (13:45)
--- NOTE | 2024-03-26 14:59 | MRI Report ---
PROCEDURE: Lumbar Spine W/WO INDICATIONS: BILATERAL LEG WEAKNESS, LUMBAR SPONDYLOSIS CONTRAST: CLARISCAN 15.0 ML TECHNIQUE: Noncontrast sagittal T1 spin echo and T2 fast spin echo, sagittal STIR, axial T1 and T2 fast spin ech o through the lumbar spine. In cases with scoliosis, additional coronal T2 fast spin echo may be per formed. After the administration of contrast, sagittal and axial T1 spin echo with fat saturation th rough the lumbar spine. COMPARISON: None. FINDINGS: Image quality: Excellent. Alignment and curvature: There is mild, approximately 7 mm of L4-L5 anterolisthesis secondary to fac et hypertrophy. Marrow: Modic type II reactive endplate changes noted adjacent to the L1-L2 and L5-S1 discs. Small he mangioma in the L3 vertebral body. No acute vertebral body compression fractures. No suspicious rebecca ow enhancement. Spinal cord: Conus medullaris terminates at the L1-2 disc level. Visualized spinal cord demonstrate s normal signal, without suspicious enhancement. Paraspinous soft tissues: No paravertebral masses or abnormal enhancement. T12-L1: Normal in appearance. L1-L2: Loss of disc signal. Moderate, diffuse disc bulge. Mild narrowing of the central canal. No neural foraminal narrowing. No neural compression. L2-L3: Loss of disc signal. Moderate, diffuse disc bulge. Mild narrowing of the central canal. Mil d bilateral neural foraminal narrowing. No neural compression. L3-L4: Loss of disc signal. Mild, diffuse disc bulge. Mild bilateral facet hypertrophy. Mild narrow ing of the central canal. Mild bilateral neural foraminal narrowing. No neural compression. L4-L5: Loss of disc signal. Mild, diffuse disc bulge. Severe bilateral facet hypertrophy. Moderate narrowing of the central canal. Mild bilateral neural foraminal narrowing. No neural compression. L5-S1: Loss of disc signal and height. Mild, diffuse disc bulge. Mild bilateral facet hypertrophy. No central stenosis. Mild left neural foraminal narrowing. No neural compression. IMPRESSION: Grade 1 L4-L5 degenerative spondylolisthesis. Multilevel degenerative disease. Multilevel facet arthropathy. No severe central canal stenosis. No severe neural foraminal narrowing. No neural compression. Reviewed by: Ligia Reyes MD, PhD on 03/26/2024 2:58 PM PDT Approved by: Ligia Reyes MD, PhD on 03/26/2024 2:58 PM PDT Station ID: [id number]
== END 2024-03-26 12:34 | disposition home or self-care (01) ==
LOC: DI 12:33
PROVIDERS: ATTEND Psychiatry & Neurology Neurology
DX: M47.816 Spondylosis without myelopathy or radiculopathy, lumbar region (principal); M51.36 Other intervertebral disc degeneration, lumbar region; M47.817 Spondylosis without myelopathy or radiculopathy, lumbosacral region; M51.37 Other intervertebral disc degeneration, lumbosacral region; M43.16 Spondylolisthesis, lumbar region

== ENCOUNTER 2024-04-24 08:00 | Outpatient (CLI) | payer MEDICARE, MEDICAID ==
[2024-04-24 19:50] LABS: BILIRUBIN,URINE NEGATIVE (NEGATIVE); CLARITY,URINE CLOUDY (CLEAR); GLUCOSE, URINE (UA) NEGATIVE (NEGATIVE); KETONES,URINE (UA) NEGATIVE (NEGATIVE); LEUKOCYTE ESTERASE, URINE SMALL (NEGATIVE); NITRITE,URINE POSITIVE (NEGATIVE); OCCULT BLOOD,URINE NEGATIVE (NEGATIVE); PH,URINE 8.5 PH (5.0-7.5); PROTEIN,URINE TRACE mg/dL (NEGATIVE); UROBILINOGEN,URINE 1 (NORMAL) E.U./dL (NORMAL)
[2024-04-24 20:00] LABS: CALCIUM 9.7 mg/dL (8.5-10.3); CREATININE 0.7 mg/dL (0.6-1.3); POTASSIUM 3.7 mmol/L (3.5-4.5)
[2024-04-24 20:14] LABS: BACTERIA,URINE Many /HPF (None Seen); RBC,URINE 0-5 /HPF (0-5); SQUAMOUS EPITHELIAL CELL,UR FEW Squamous (<= Few); WBC,URINE 0-3 /HPF (0-5)
[2024-04-24 20:15] LABS: CRYSTALS,URINE 6-10 Triple Phos /LPF
== END 2024-04-24 23:59 | disposition home or self-care (01) ==
LOC: LAB.R 08:00
DX: I73.9 Peripheral vascular disease, unspecified (principal); G20.A1 Parkinson's disease without dyskinesia, without mention of fluctuations; G40.909 Epilepsy, unspecified, not intractable, without status epilepticus; Z79.899 Other long term (current) drug therapy; N39.0 Urinary tract infection, site not specified
CPT/HCPCS: 80048; 81001; 81003; 81599; 87077; 87086; 87181

== ENCOUNTER 2024-06-25 17:30 | Outpatient (CLI) | payer MEDICARE, MEDICAID ==
[2024-06-25 18:37] LABS: CALCIUM 9.5 mg/dL (8.5-10.3); CREATININE 0.7 mg/dL (0.6-1.3); POTASSIUM 3.5 mmol/L (3.5-4.5)
== END 2024-06-25 17:31 | disposition home or self-care (01) ==
LOC: LAB.R 17:30
PROVIDERS: ATTEND Family Medicine
DX: R62.7 Adult failure to thrive (principal); F32.A Depression, unspecified
CPT/HCPCS: 80048; 81599